=== PATIENT | female | born 1965 | race Caucasian/White ===

== ENCOUNTER 2023-07-11 12:48 | Outpatient (OUT) | payer BC, SELFPAY ==
[2023-07-11 13:23] LABS: Basophils Absolute Auto 0.1 10^3/uL (0.0-0.1); Basophils Percent Auto 0.6 % (0.2-2.0); Eosinophils Absolute Auto 0.3 10^3/uL (0.0-0.7); Eosinophils Percent Auto 2.9 % (0.9-7.0); Hematocrit 45.4 % (36.0-48.0); Hemoglobin 14.1 g/dL (12.0-16.0); Immature Granulocytes Abs Auto 0.02 10^3/uL (0.00-0.03); Immature Granulocytes Pct Auto 0.2 % (0.0-0.5); Lymphocytes Absolute Auto 2.2 10^3/uL (1.2-3.8); Mean Corpuscular HGB Conc 31.1 g/dL (29.9-35.2); Mean Corpuscular Hemoglobin 27.3 pg (26.7-34.0); Mean Platelet Volume 9.7 fL (9.5-13.5); Monocytes Absolute Auto 0.8 10^3/uL (0.3-0.8); Monocytes Percent Auto 8.1 % (1.7-12.0); Neutrophils Absolute Auto 6.3 10^3/uL (1.4-6.5); Neutrophils Percent Auto 65.2 % (43.0-75.0); Platelet Count 261 10^3/uL (150-450); Red Blood Count 5.16 10^6/uL (4.20-5.40); Red Cell Distribution Width 13.6 % (11.0-15.0); White Blood Count 9.6 10^3/uL (4.0-11.0)
[2023-07-11 13:40] LABS: Alanine Aminotransferase 11 U/L (14-59); Albumin Level 3.3 g/dL (3.4-5.0); Alkaline Phosphatase 130 U/L (46-116); Amylase 54 U/L (25-115); Anion Gap 13.5; Aspartate Amino Transferase 15 U/L (15-37); BUN Creatinine Ratio 14.9; Bilirubin Total 0.5 mg/dL (0.2-1.0); Calcium 8.8 mg/dL (8.5-10.1); Carbon Dioxide 25.7 mmol/L (21.0-32.0); Chloride 105 mmol/L (98-107); Estimated GFR (African America 59 (>=60); Estimated GFR (Non-African Ame 49 (>=60); Globulin 3.4 g/dL; Glucose 86 mg/dL (74-106); Potassium 4.2 mmol/L (3.5-5.1); Sodium 140 mmol/L (136-145); Total Protein 6.7 g/dL (6.4-8.2)
== END 2023-07-11 12:49 | disposition home or self-care (01) ==
LOC: LAB 12:53
PROVIDERS: PCP Internal Medicine; Visit Provider Internal Medicine
DX: R10.13 Epigastric pain (principal); I10 Essential (primary) hypertension
CPT/HCPCS: 36415; 80053; 82150; 83690; 85025

== ENCOUNTER 2023-08-18 14:05 | Outpatient (OUT) | payer BC, SELFPAY ==
--- NOTE | 2023-08-18 14:07 | CT_ITS ---
[address] [address] Patient Name: MAN PATTERSON MRN: [id number] date: 1965 Sex: F Assigned Patient Location: CT Current Patient Location: Accession/Order Number: [id number] Exam Date: 08/18/2023 15:25 Report Date: 08/19/2023 07:39 At the request of: VISHNU COVINGTON Procedure: CT abdomen pelvis w con EXAMINATION: CT abdomen pelvis w con HISTORY: Epigastric mass R19.06 ; lump on abdomen COMPARISON: No relevant comparison available. TECHNIQUE: Axial, Coronal, and Sagittal images were obtained without and/or with IV contrast as indicated by examination type. Dose reduction techniques were achieved by using automated exposure control and/or adjustment of mA and/or kV according to patient size and/or use of iterative reconstruction technique. FINDINGS: LUNG BASES: No visible pulmonary or pleural disease. LIVER: No enlargement, atrophy, suspicious density, or significant focal lesion. BILIARY: Cholecystectomy. PANCREAS: No lesion, fluid collection, or abnormal duct dilatation. SPLEEN: No enlargement or focal lesion. ADRENALS: No mass or enlargement. KIDNEYS: No mass, obstruction, or calcification. BOWEL/MESENTERY: No visible mass, obstruction, or bowel wall thickening. AORTA/VASCULAR: No aneurysm or dissection. RETROPERITONEUM: No mass or adenopathy. LYMPH NODES: No adenopathy. URINARY BLADDER: No visible focal wall thickening, lesion, or calculus. PELVIC ORGANS: No visible mass. Pelvic organs appropriate for patient age. ABDOMINAL WALL: 2 adjacent supraumbilical ventral hernias; 8.7 x 8.2 x 3.8 cm containing a loop of transverse colon, and 7.2 x 5.8 x 3.8 cm containing nonstrangulated fat. BONES: Moderate-marked degenerative disc disease L4-5, L5-S1. OTHER: Negative. CT/CT abdomen pelvis w con IMPRESSION: 1. There are 2 adjacent midline supraumbilical ventral hernias. One contains a short segment of transverse colon without obstruction or inflammatory changes. The other contains fat, but the transverse colon is immediately adjacent the opening. Electronically authenticated by: EVANGELIST WILLARD Date: 08/19/2023 07:39
== END 2023-08-18 14:06 | disposition home or self-care (01) ==
LOC: CT 14:05
PROVIDERS: PCP Internal Medicine; Visit Provider Surgery
DX: R19.06 Epigastric swelling, mass or lump (principal); K43.9 Ventral hernia without obstruction or gangrene
CPT/HCPCS: 74177; Q9967

== ENCOUNTER 2023-08-25 09:52 | Outpatient (OUT) | payer BC, SELFPAY ==
--- NOTE | 2023-08-25 10:00 | CA_ITS ---
Patient Name: MAN PATTERSON MR#: [id number] : 1965 Exam Date: 08/25/2023 Ordering Doctor: GLADIS VILLASEÑOR CNP ECHOCARDIOGRAM REPORT PROCEDURE: CA ECHO DOPPLER COMPLETE INDICATIONS: Hypertension COMPARISON: None. DESCRIPTION: COMPLETE ECHOCARDIOGRAM Real-time transthoracic echocardiography with 2D, M-mode, spectral and color flow Doppler performed. QUALITY: Technical quality was good. 66 , 250#, BSA 2.20 m2, BP 142/84 LEFT VENTRICLE: Normal chamber size. Borderline left ventricular hypertrophy. Normal systolic function. LV EF: Normal left ventricular ejection fraction, (55%). DIASTOLIC: Normal diastolic function. ATRIAL SEPTUM: Visually appears intact. LEFT ATRIUM: Normal chamber size. RIGHT ATRIUM: Normal chamber size. RIGHT VENTRICLE: Normal chamber size. Normal right ventricular systolic function. TRICUSPID VALVE: Normal mobility and thickness. No stenosis with no regurgitation. MITRAL VALVE: Normal mobility and thickness. No evidence of mitral valve stenosis. There is no mitral annular calcification. No mitral regurgitation. AORTIC VALVE: Normal trileaflet appearance. No visible sclerosis. Normal leaflet mobility. No evidence of aortic valve stenosis. No aortic regurgitation. AORTIC ROOT: Normal diameter and appearance. Ascending aorta is normal in size. PULMONIC VALVE: Not well visualized. No stenosis. No regurgitation. PERICARDIUM: No evidence of pericardial effusion. IVC: Collapses with inspirations. IVC is normal in size. PLEURA: CONCLUSION: 1. Normal ventricular systolic function. LVEF is 55%. 2. Normal diastolic function. 3. No significant valvular dysfunction. 4. No pericardial effusion. Adult Echocardiography Procedure Report Left Ventricle LVEDD (3.7 - 5.6 cm): 4.65 cm LVESD (2.2 - 4.0 cm): 3.29 cm LVIVS thickness (0.6 - 1.2 cm): 0.99 cm LVPW thickness (0.5 - 1.0 cm): 0.96 cm e': 0.09 m/s E - e': 6.56 LVOT Max Gradient: 5.15 mm[Hg] LVOT Area (cm2): 1.13 m/s Peak Velocity (LVOT): 1.13 m/s Mean Velocity (LVOT): 0.77 m/s LVOT Diameter 1.99 cm Left Atrium LA Volume Index (2D A2C): 24.09 ml/m2 Left Atrium Systolic Dimension: 4.50 cm Mitral Valve MV E to A Ratio: 0.81 Mitral Valve A-Wave Peak Velocity: 0.72 m/s Mitral Valve E-Wave Peak Velocity: 0.59 m/s Right Ventricle Aorta AO Root Diam: 3.34 cm Ascending Ao Diam: 3.16 cm Aortic Valve AoV Area (Peak Fareed): 2.55 cm2, 2.55 cm2 AoV Area (VTI): 2.89 cm2, 2.89 cm2 Peak Velocity(Antegrade Flow): 1.38 m/s Peak Gradient(Antegrade Flow): 7.58 mm[Hg] Mean Velocity(Antegrade Flow): 0.90 m/s Mean Gradient(Antegrade Flow): 3.81 mm[Hg] Velocity Time Integral: 30.27 cm Tricuspid Valve Pulmonic Valve Peak Gradient: 2.89 mm[Hg], 3.26 mm[Hg] Right Atrium Dictated by: Skyler Rice M.D. on 08/25/2023 at 17:38 Approved by: Skyler Rice M.D. on 08/25/2023 at 17:40
--- OUTSIDE RECORDS SUMMARY | 2023-08-25 10:02 | XMS_ITS | CCD ---
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 Role Phone PHYSICIAN, DEFAULT Unavailable Unavailable PHYSICIAN, DEFAULT Unavailable Unavailable Rosemary Manriquez Unavailable Harjinder Denny Unavailable QUENTIN, DR GREENWOOD Admitting Unavailable QUENTIN, DR GREENWOOD Attending Unavailable QUENTIN, DR GREENWOOD Consulting Unavailable QUENTIN, DR GREENWOOD Primary Care Unavailable QUENTIN, DR GREENWOOD Primary Care Unavailable QUENTIN, DR GREENWOOD Admitting Unavailable QUENTIN, DR GREENWOOD Attending Unavailable QUENTIN, DR GREENWOOD Consulting Unavailable GLADIS VILLASEÑOR Attending Unavailable HAILEE ALEX Attending Unavailable VISHNU COVINGTON Attending Unavailable Allergies Allergy Classification Reported Allergen(s) Allergy Type Date of Onset Reaction(s) Facility (1 source) Desonide Drug Allergy 7 [facility] Repository (1 source) patient allergy list reviewed by nurse or physicia Propensity to adverse reactions 9 Comment:Done [employer] Other (1 source) Allergies Reconciled Propensity to adverse reactions Unknown [employer] Other Medications Current Medications Medication Drug Class(es) Dates Sig (Normalized) Sig (Original) [id number] 200 actuat albuterol 0.09 mg/actuat metered dose inhaler (3 sources) beta2-Adrenergic Agonist Start: 03-13-2022 take 2 puff(s) by inhalation every four hours as needed Albuterol Sulfate HFA 108 (90 Base) MCG/ACT 2 puffs as needed Inhalation every 4 hrs Mar, Active Start: 03-13-2022 take 2 puff(s) by in halation every four hours as needed Albuterol Sulfate HFA 108 (90 Base) MCG/ACT 2 puffs as needed Inhalation every 4 hrs Mar, Active amoxicillin 875 mg oral tablet (3 sources) Penicillin-class Antibacterial Start: 03-13-2022 take 1 tablet by mouth every twelve hours Amoxicillin 875 MG 1 tablet Orally every 12 hrs for 7 days Mar, Active aspirin 81 mg delayed release oral tablet (7 sources) Platelet Aggregation Inhibitor, Nonsteroidal Anti-inflammatory Drug Start: 07-11-2023 take 81 mg by mouth once daily Aspirin Active 81 MG PO Daily July 11, 2023 12:00am take 1 tablet by mouth once yang y Aspirin 81 81 MG 1 tablet Orally Once a day Active 24 hr buPROPion hydrochloride 150 mg extended release oral tablet (10 sources) Aminoketone Start: 07-11-2023 take 150 mg by mouth once daily in the morning Bupropion Hcl Active 150 MG PO Every morning July 11, 2023 12:00am take 1 tablet by la nena th every twenty-four hours Wellbutrin XL 150 MG 1 tablet in the morning Orally Once a day for 90 days Active take 1 tablet by la nena th every twenty-four hours buPROPion HCl ER (SR) 150 MG 1 tablet in the morning Orally Once a day Active clonazePAM 0.5 mg oral tablet (3 sources) Benzodiazepine Start: 08-03-2022 clonazePAM 0.5 MG 1/2 - 1 Orally q HS for 30 days Jul, Active dexamethasone 1 mg/ml / tobramycin 3 mg/ml ophthalmic suspension (3 sources) Aminoglycoside Antibacterial, Corticosteroid Start: 03-13-2022 take 1 drop(s) into the eye(s) three times daily TobraDex 0.3-0.1 % 1 drop into affected eye Ophthalmic Three times a day for 5 days Mar, Active escitalopram 20 mg oral tablet (7 sources) Serotonin Reuptake Inhibitor Start: 07-11-2023 take 20 mg by mouth once daily Escitalopram Oxalate Active 20 MG PO Daily July 11, 2023 12:00am take 1 tablet by la nena th every twenty-four hours Escitalopram Oxalate 20 MG 1 tablet Oral ly Once a day for 90 days Active lisinopril 40 mg oral tablet (7 sources) Angiotensin Converting Enzyme Inhibitor Start: 07-11-2023 take 40 mg by mouth once daily Lisinopril Active 40 MG PO Daily July 11, 2023 12:00am take 1 tablet by la nena th every twenty-four hours Lisinopril 30 MG 1 tablet Orally Once a day Active take 1 tablet by la nena th every twenty-four hours Lisinopril 20 MG 1 tablet Orally Once a day Active methylPREDNISolone 4 mg oral tablet (3 sources) Corticosteroid Start: 03-13-2022 methylPREDNISolone 4 MG as directed Orally Once a day for 6 days Mar, Active metoprolol tartrate 37.5 mg oral tablet (7 sources) beta-Adrenergic Kim Start: 07-11-2023 take 37.5 mg by mouth once daily Metoprolol Tartrate Active 37.5 MG PO Daily July 11, 2023 12:00am Toprol XL 25 MG 1 1/2 tablet Orally Once a day Active Problems Active Problems Problem Classification Problem Date Documented Da te Episodic/Chronic Abdominal pain (2 sources) Epigastric pain; Translations: [Epigastric pain] 07-11-2023 Episodic Acute bronchitis (1 source) Acute bronchitis; Translations: [Acute bronchitis due to other specified organisms] Episodic Anxiety disorders (1 source) Posttraumatic stress disorder; Translations: [Post-traumatic stress disorder, unspecified] Chronic Asthma (1 source) Acute exacerbation of moderate persistent asthma; Translations: [Moderate persistent asthma with (acute) exacerbation] Chronic Cardiac dysrhythmias (10 sources) Ventricular bigeminy; Translations: [Other specified cardiac arrhythmias] Onset: 9 Chronic Chronic obstructive pulmonary disease and bronchiectasis (1 source) Bronchitis, not specified as acute or chronic Episodic Disorders of lipid metabolism (2 sources) Mixed hyperlipidemia; Translations: [Mixed hyperlipidemia] Onset: 3 Chronic Essential hypertension (9 sources) Essential hypertension; Translations: [Essential (primary) hypertension] Onset: 3 Chronic Headache; including migraine (2 sources) Migraine with aura; Translations: [Migraine with aura, without mention of intractable migraine without mention of status migrainosus] Onset: 9 Chronic Inflammation; infection of eye (except that caused by tuberculosis or sexually transmitteddisease) (1 source) Unspecified acute conjunctivitis, bilateral Episodic Mood disorders (7 sources) Recurrent major depressive episodes, mild ; Translations: [Major depressive disorder, recurrent, mild] Chronic Other gastrointestinal disorders (1 source) H/O: gastrointestinal disease; Translations: [Personal history of other diseases of the digestive system] Episodic Other lower respiratory disease (1 source) Dyspnea; Translations: [Other forms of dyspnea] Episodic Other nutritional; endocrine; and metabolic disorders (1 source) Simple obesity ; Translations: [Other obesity due to excess calories] Onset: 9 Chronic Other nutritional; endocrine; and metabolic disorders (1 source) Obese class I; Translations: [Body mass index 34.0-34.9, adult] Onset: 9 Chronic Other nutritional; endocrine; and metabolic disorders (1 source) Body mass index 30+ - obesity; Translations: [Body mass index 36.0-36.9, adult] Onset: 9 Chronic Other screening for suspected conditions (not mental disorders or infectious disease) (1 source) Encounter for screening mammogram for malignant neoplasm of breast Episodic Other upper respiratory infections (1 source) Acute pharyngitis, unspecified Episodic Otitis media and related conditions (1 source) Otitis media, unspecified, bilateral Episodic Residual codes; unclassified (4 sources) Obstructive sleep apnea syndrome; Translations: [Obstructive sleep apnea (adult) (pediatric)] Chronic Residual codes; unclassified (1 source) Obstructive sleep apnea (adult) (pediatric) Chronic Residual codes; unclassified (1 source) Pain, unspecified Episodic Residual codes; unclassified (1 source) Acquired absence of other specified parts of digestive tract; Translations: [Other acquired absence of organ] 07-11-2023 Episodic Varicose veins of lower extremity (1 source) Varicose veins of bilateral lower limbs; Translations: [Asymptomatic varicose veins of bilateral lower extremities] Episodic Viral infection (1 source) Disease caused by 2019-nCoV; Translations: [COVID-19] Past or Other Problems Problem Classification Problem Date Documented Da te Episodic/Chronic Cardiac dysrhythmias (2 sources) Palpitations; Translations: [Palpitations] Onset: 09-08-2022 Episodic Other and unspecified benign neoplasm (1 source) Eruptive melanocytic nevi; Translations: [Melanocytic nevi, unspecified] Onset: 05-08-2018 Episodic Other nutritional; endocrine; and metabolic disorders (1 source) Obesity; Translations: [Obesity, unspecified] Resolved: 08-04-2020 Chronic Other nutritional; endocrine; and metabolic disorders (1 source) Morbid obesity; Translations: [Morbid (severe) obesity due to excess calories] Resolved: 04-06-2022 Chronic Residual codes; unclassified (1 source) Other acquired absence of organ; Translations: [Other acquired absence of organ] Onset: 10-25-2018 Resolved: 10-28-2019 Episodic Syncope (3 sources) Syncope and collapse; Translations: [Syncope and collapse] Onset: 05-08-2018 Episodic Results Test Name Value Interpretation Reference Range Facility Office Visiton 08-02-2023 Follow-up visit [id number] Josephine Salas 1965 F Date Provider Department Center 08/02/2023 166-GLADIS VILLASEÑOR DAVID [facility] No family history on file Level of Service:23574 [place] OFFICE/OUTPATIENT ESTABLISHED MOD MDM 30 MIN Reason for Visit and Comments: Hypertension [772743] Normal [facility] Office Visiton 09-29-2022 Follow-up visit [id number] Josephine Salas 1965 F Date Provider Department Center 09/29/2022 120-HAILEE ALEX SHEFALI [facility] No family history on file Level of Service:25597 [place] OFFICE/OUTPATIENT ESTABLISHED LOW MDM 20-29 MIN Reason for Visit and Comments: Follow-up [[id number]] - Yearly follow up [facility] CBC AUTO DIFFon 07-28-2022 BASO # 0.1 103/ul Normal 0.0-0.1 [facility] Comment on above: Performed By: #### C BC #### [facility] [address] [place] [address] Dr. Jakub Chen Basophils/100 WBC (Bld) 0.6 % Normal 0.2-2.0 [facility] Comment on above: Performed By: #### C BC #### [facility] [address] [place] [address] Dr. Jakub Chen EO # 0.3 103/ul Normal 0.0-0.7 [facility] Comment on above: Performed By: #### C BC #### [facility] [address] [place] [address] Dr. Jakub Chen Eosinophils/100 WBC (Bld) 3.8 % Normal 0.9-7.0 [facility] Comment on above: Performed By: #### C BC #### [facility] [address] [place] [address] Dr. Jakub Chen Erythrocyte distribution width (RBC) [Ratio] 13.5 % Normal 11.0-15.0 [facility] Comment on above: Performed By: #### C BC #### [facility] [address] [place] [address] Dr. Jakub Chen Hematocrit (Bld) [Volume fraction] 45.6 % Normal 36.0-48.0 [facility] Comment on above: Performed By: #### C BC #### [facility] [address] [place] [address] Dr. Jakub Chen Hemoglobin (Bld) [Mass/Vol] 14.3 g/dL Normal 12.0-16.0 [facility] Comment on above: Performed By: #### C BC #### [facility] [address] [place] [address] Dr. Jakub Chen IG # 0.02 10e3/ul Normal 0.00-0.03 [facility] Comment on above: Performed By: #### C BC #### [facility] [address] [place] [address] Dr. Jakub Chen IG % 0.3 % Normal 0.0-0.5 [facility] Comment on above: Performed By: #### C BC #### [facility] [address] [place] [address] Dr. Jakub Chen LYMPH # 1.7 103/ul Normal 1.2-3.8 [facility] Comment on above: Performed By: #### C BC #### [facility] [address] [place] [address] Dr. Jakub Chen Lymphocytes/100 WBC (Bld) 22.1 % Normal 20.5-60.0 [facility] Comment on above: Performed By: #### C BC #### [facility] [address] [place] [address] Dr. Jakub Chen MANUAL DIFF REQ NO Normal [facility] Comment on above: Performed By: #### C BC #### [facility] [address] [place] [address] Dr. Jakub Chen MCH (RBC) [Entitic mass] 27.8 pg Normal 26.7-34.0 [facility] Comment on above: Performed By: #### C BC #### [facility] [address] [address] [address] Jakub Chen MCHC (RBC) [Mass/Vol] 31.4 g/dL Normal 29.9-35.2 [facility] Comment on above: Performed By: #### C BC #### [facility] [address] [address] [address] Jakub Chen MCV (RBC) [Entitic vol] 88.5 fL Normal 81.0-99.0 [facility] Comment on above: Performed By: #### C BC #### [facility] [address] [place] [address] Dr. Jakub Chen MONO # 0.6 103/ul Normal 0.3-0.8 [facility] Comment on above: Performed By: #### C BC #### [facility] [address] [place] [address] Dr. Jakub Chen Monocytes/100 WBC (Bld) 7.9 % Normal 1.7-12.0 [facility] Comment on above: Performed By: #### C BC #### [facility] [address] [place] [address] Dr. Jakub Chen NEUT # 5.1 103/ul Normal 1.4-6.5 [facility] Comment on above: Performed By: #### C BC #### [facility] [address] [place] [address] Dr. Jakub Chen Neutrophils/100 WBC (Bld) 65.3 % Normal 43.0-75.0 [facility] Comment on above: Performed By: #### C BC #### [facility] [address] [address] [address] Jakub Chen Platelet mean volume (Bld) [Entitic vol] 9.1 fL Critically low 9.5-13.5 [facility] Comment on above: Performed By: #### C BC #### [facility] [address] [address] [address] Jakub Chen PLT 277 103/ul Normal 150-450 [facility] Comment on above: Performed By: #### C BC #### [facility] [address] [place] [address] Dr. Jakub Chen RBC 5.15 106/ul Normal 4.20-5.40 [facility] Comment on above: Performed By: #### C BC #### [facility] [address] [address] [address] Jakub Chen WBC 7.7 103/ul Normal 4.0-11.0 [facility] Comment on above: Performed By: #### C BC #### [facility] [address] [place] [address] Dr. Jakub Chen GLYCOHEMOGLOBIN A1Con 2022 ADA RECOMMENDATION SEE BELOW Normal [facility] Comment on above: Result Comment: ADA RECOMMENDED LIMIT 4.0 - 6.0 ADA THERAPEUTIC TARGET < 7.0 ACTION SUGGESTED > 7.0 Performed By: #### A 1C #### [facility] [address] [place] [address] Dr. Jakub Chen Glucose [Mass/Vol] 108 mg/dL Normal [facility] Comment on above: Performed By: #### A 1C #### [facility] [address] [place] [address] Dr. Jakub Chen HbA1c (Bld) [Mass fraction] 5.4 % Normal 4.5-6.2 [facility] Comment on above: Performed By: #### A 1C #### [facility] [address] [place] [address] Dr. Jakub Chen LIPID PROFILEon 07-28-2022 CHOL-HDL RATIO NORM SEE BELOW Normal [facility] Comment on above: Result Comment: 3.3 - 4.4 LOW RISK 4.4 - 7.1 AVERAGE RISK 7.1 - 11.0 MODERATE RISK >11.0 HIGH RISK Performed By: #### T SH, CMP, LIPID #### [facility] [address] [place] [address] Dr. Jakub Chen Cholesterol [Mass/Vol] 207 mg/dL Critically high <=200 [facility] Comment on above: Performed By: #### T SH, CMP, LIPID #### [facility] [address] [address] [address] Jakub Chen Cholesterol in HDL [Mass/Vol] 57 mg/dL Normal 40-60 [facility] Comment on above: Performed By: #### T SH, CMP, LIPID #### [facility] [address] [address] [address] Jakub Chen Cholesterol in LDL [Mass/Vol] 129.2 mg/dL Normal [facility] Comment on above: Performed By: #### T SH, CMP, LIPID #### [facility] [address] [address] [address] Jakub Chen Cholesterol.total/Ch olesterol in HDL [Mass ratio] 3.6 {ratio} Normal [facility] Comment on above: Performed By: #### T SH, CMP, LIPID #### [facility] [address] [address] [address] Jakub Chen HDL NORMAL > or = 60 mg/dl - LOW CARDIOVASCULAR RISK <40 mg/dl - HIGH CARDIOVASCULAR RISK Normal [facility] Comment on above: Performed By: #### T SH, CMP, LIPID #### [facility] [address] [address] [address] Jakub Chen LDL CALC NORMAL SEE BELOW Normal [facility] Comment on above: Result Comment: <100 mg/dl OPTIMAL 100 - 129 mg/dl NEAR OR ABOVE OPTIMAL 130 - 159 mg/dl BORDERLINE HIGH 160 - 189 mg/dl HIGH >190 mg/dl VERY HIGH Performed By: #### T SH, CMP, LIPID #### [facility] [address] [address] [address] Jakub Chen Triglyceride [Mass/Vol] 104 mg/dL Normal <=150 [facility] Comment on above: Performed By: #### T SH, CMP, LIPID #### [facility] [address] [address] [address] Jakub Chen VLDL CALC 20.8 mg/dL Normal [facility] Comment on above: Performed By: #### T SH, CMP, LIPID #### [facility] [address] [address] [address] Jakub Chen MICROALBUMIN, RAND URon 04-1 9-2023 mALB <1.3 Normal <=30.0 [facility] Comment on above: Performed By: #### M ALBR #### [facility] [address] [address] [address] Jakub Chen PROF 14(COMP METB)on 023 Albumin [Mass/Vol] 3.5 g/dL Normal 3.4-5.0 [facility] Comment on above: Performed By: #### T SH, CMP, LIPID #### [facility] [address] [address] [address] Jakub hCen Albumin/Globulin [Mass ratio] 1.0 {ratio} Normal [facility] Comment on above: Performed By: #### T SH, CMP, LIPID #### [facility] [address] [address] [address] Jakub Chen ALP [Catalytic activity/Vol] 126 U/L Critically high 46-116 [facility] Comment on above: Performed By: #### T SH, CMP, LIPID #### [facility] [address] [place] [address] Dr. Jakub Chen ALT [Catalytic activity/Vol] 16 U/L Normal 14-59 [facility] Comment on above: Performed By: #### T SH, CMP, LIPID #### [facility] [address] [address] [address] Jakub Chen Anion gap [Moles/Vol] 11.7 mmol/L Normal [facility] Comment on above: Performed By: #### T SH, CMP, LIPID #### [facility] [address] [address] [address] Jakub Chen AST [Catalytic activity/Vol] 14 U/L Critically low 15-37 [facility] Comment on above: Performed By: #### T SH, CMP, LIPID #### [facility] [address] [place] [address] Dr. Jakub Chen Bilirubin [Mass/Vol] 0.3 mg/dL Normal 0.2-1.0 [facility] Comment on above: Performed By: #### T SH, CMP, LIPID #### [facility] [address] [address] [address] Jakub Chen Calcium [Mass/Vol] 8.9 mg/dL Normal 8.5-10.1 [facility] Comment on above: Performed By: #### T SH, CMP, LIPID #### [facility] [address] [address] [address] Jakub Chen Chloride [Moles/Vol] 108 mmol/L Critically high 98-107 [facility] Comment on above: Performed By: #### T SH, CMP, LIPID #### [facility] [address] [address] [address] Jakub Chen CO2 [Moles/Vol] 28.2 mmol/L Normal 21.0-32.0 [facility] Comment on above: Performed By: #### T SH, CMP, LIPID #### [facility] [address] [address] [address] Jakub Chen Creatinine [Mass/Vol] 1.01 mg/dL Normal 0.55-1.02 [facility] Comment on above: Performed By: #### T SH, CMP, LIPID #### [facility] [address] [address] [address] Jakub Chen EGFR-AF IVORIAN >60 Normal >=60 [facility] Comment on above: Performed By: #### T SH, CMP, LIPID #### [facility] [address] [address] [address] Jakub Chen EGFR-NON AF IVORIAN 56 mL/min/1.73m2 Critically low >=60 [facility] Comment on above: Performed By: #### T SH, CMP, LIPID #### [facility] [address] [address] [address] Jakub Chen Globulin (S) [Mass/Vol] 3.5 g/dL Normal [facility] Comment on above: Performed By: #### T SH, CMP, LIPID #### [facility] [address] [address] [address] Jakub Chen Glucose [Mass/Vol] 95 mg/dL Normal 74-106 [facility] Comment on above: Performed By: #### T SH, CMP, LIPID #### [facility] [address] [place] [address] Dr. Jakub Chen Potassium [Moles/Vol] 4.9 mmol/L Normal 3.5-5.1 [facility] Comment on above: Performed By: #### T SH, CMP, LIPID #### [facility] [address] [place] [address] Dr. Jakub Chen Protein [Mass/Vol] 7.0 g/dL Normal 6.4-8.2 [facility] Comment on above: Performed By: #### T SH, CMP, LIPID #### [facility] [address] [place] [address] Dr. Jakub Chen Sodium [Moles/Vol] 143 mmol/L Normal 136-145 [facility] Comment on above: Performed By: #### T SH, CMP, LIPID #### [facility] [address] [place] [address] Dr. Jakub Chen Urea nitrogen [Mass/Vol] 13.0 mg/dL Normal 7.0-18.0 [facility] Comment on above: Performed By: #### T SH, CMP, LIPID #### [facility] [address] [place] [address] Dr. Jakub Chen Urea nitrogen/Creatinine [Mass ratio] 12.9 mg/mg Normal [facility] Comment on above: Performed By: #### T SH, CMP, LIPID #### [facility] [address] [place] [address] Dr. Jakub Chen TSHon 07-28-2022 TSH 1.406 uIU/mL Normal 0.358-3.740 [facility] Comment on above: Performed By: #### T SH, CMP, LIPID #### [facility] [address] [place] [address] Dr. Jakub Chen COVID/FLU RT-PCRon 2 SARS-CoV-2 (COVID-19) RNA RUSS+probe Ql (Unsp spec) Negative [employer] Other COVID/FLU RT-PCR Negative [employer] Other [facility] 03-13-2022 S. pyogenes Org specific cx Ql (Throat) Negative [facility] [employer] Other Quick Strep [facility] [employer] Other Vital Signs Date Time Vital Sign Value Performing Clinician Facility 07-11-2023 11:47-0400 Body height 167.64 cm [facility] 07-11-2023 11:47-0400 Body mass index (BMI) [Ratio] 40.2 kg/m2 [facility] 07-11-2023 11:47-0400 Body weight 113.05 kg [facility] 07-11-2023 11:47-0400 Diastolic blood pressure 111 mm[Hg] [facility] 07-11-2023 11:47-0400 Heart rate 75 /min [facility] 07-11-2023 11:47-0400 Respiratory rate 12 /min [facility] 07-11-2023 11:47-0400 Systolic blood pressure 162 mm[Hg] [facility] 08-03-2022 11:30-0400 Body height 167.64 cm Harjinder Ball Other [facility] [employer] Other 08-03-2022 11:30-0400 Body mass index (BMI) [Ratio] 38.22 kg/m2 Harjinder Ball Other [facility] [employer] Other 08-03-2022 11:30-0400 Body weight 107.41 kg Harjinder Ball Other [facility] [employer] Other 08-03-2022 11:30-0400 Diastolic blood pressure 78 mm[Hg] Harjinder Ball Other [facility] [employer] Other 08-03-2022 11:30-0400 Respiratory rate 12 /min Harjinder Ball Other [facility] [employer] Other 08-03-2022 11:30-0400 Systolic blood pressure 122 mm[Hg] Harjinder Ball Other [employer] Other 03-13-2022 12:15-0500 Body height 167.64 cm Rosemary Manriquez Other [employer] Other 03-13-2022 12:15-0500 Body mass index (BMI) [Ratio] 36.63 kg/m2 Rosemary Manriquez Other [employer] Other 03-13-2022 12:15-0500 Body temperature 99.3 [degF] Rosemary Manriquez Other [facility] Other 03-13-2022 12:15-0500 Body weight 102.97 kg Rosemary Manriquez Other [facility] Other 03-13-2022 12:15-0500 Diastolic blood pressure 86 mm[Hg] Rosemary Manriquez Other [facility] Other 03-13-2022 12:15-0500 Respiratory rate 20 /min Rosemary Manriquez Other [facility] Other 03-13-2022 12:15-0500 SaO2% (BldA) [Mass fraction] 97 % Rosemary Manriquez Other [facility] Other 03-13-2022 12:15-0500 Systolic blood pressure 132 mm[Hg] Rosemary Manriquez Other [facility] Other Encounters Encounter Date Encounter Type Care Provider Facility Start: 08-15-2023 End: 08-15-2023 ambulatory VISHNU COVINGTON Not Available Start: 08-02-2023 End: 08-03-2023 ambulatory [facility] Start: 07-11-2023 End: 07-11-[address] [facility] Work Phone: Start: 07-11-2023 End: 07-11-2023 Patient encounter procedure [facility] Work Phone: Start: 12-28-2022 End: 12-28-2022 ambulatory Harjinder Denny Other [facility] Other Start: 12-28-2022 Telephone encounter Harjinder GOSS [facility] Start: 09-29-2022 End: 09-29-2022 ambulatory [facility] Start: 09-13-2022 End: 09-13-2022 ambulatory Harjinder Denny Other [facility] Other Start: 09-13-2022 Telephone encounter [facility] Start: 08-25-[address] HARJINDER DENNY Facili ty:[facility] Start: 08-03-2022 End: 08-03-2022 ambulatory Harjinder Denny Other [facility] Other Start: 08-03-2022 Encounter for genera l adult medical examination without abnormal findings Harjinder Denny [facility] Start: 08-03-2022 Periodic preventive med est patient 40-64yrs Harjinder Denny [facility] Start: 08-02-2022 Encounter for genera l adult medical examination without abnormal findings DR HARJINDER DENNY [facility] Start: 07-28-2022 End: 07-29-[address] HARJINDER DENNY Facility:[facility] Start: 07-28-2022 End: 07-29-2022 Encounter for general adult medical examination without abnormal findings DR HARJINDER DENNY Facility:[facility] Start: 07-16-2022 End: 07-16-2022 ambulatory Harjinder Denny Other [facility] Other Start: 07-16-2022 Encounter for genera l adult medical examination without abnormal findings Harjinder Denny [facility] Start: 07-16-2022 Telephone encounter Harjinder GOSS [facility] Start: 06-21-2022 End: 06-21-2022 ambulatory Harjinder Denny Other [facility] Other Start: 06-21-2022 Telephone encounter [facility] Start: 04-06-2022 Gynecological examination abnormal Harjinder Denny Other [facility] Other Start: 04-06-2022 Gynecological examination normal Harjinder Denny Other [facility] Other Start: 03-13-2022 End: 03-13-2022 ambulatory Rosemary Declan Other [facility] Other Start: 03-13-2022 Office outpatient ne w 20 minutes Rosemaryjefe Manriquez [facility] Start: 02-04-2020 Adult health examination Reinaldo Denny Other [facility] Other Start: 02-10-2018 End: 02-11-2018 Patient encounter procedure DEFAULT PHYSICIAN Facility:[facility] Procedures Date Procedure Procedure Detail Performing Clinician Depression screening Polina Denny Other Screening for malign ant neoplasm of breast Harjinder Denny Other Screening for malign ant neoplasm of skin Harjinder Denny Other Plan of Treatment Date Care Activity Detail Author Comprehensive metabo lic 2000 panel - Serum or Plasma [facility] Immunizations Immunization Date Immunization Notes Care Provider Fa jose 01-30-2021 COVID-19 Vaccine Mod ijeoma - Documentation Purposes Only Harjinder Denny Other [facility] 05-15-2020 COVID-19 Vaccine Mod ijeoma - Documentation Purposes Only Harjinder Denny Other [facility] 04-17-2020 COVID-19 Vaccine Mod ijeoma - Documentation Purposes Only Harjinder Denny Other [facility] Payers Date Payer Category [id number] 1965 Unknown [id number] 1965 Unknown [id number] 1965 Unknown [id number] 1965 Unknown [id number] Unknown Unknown [id number] [id number] Unknown MMO-DO NOT USE [id number] Social History Date Type Detail Facility Unknown if ever smoked [facility] Other Sex Assigned At Sex Assigned At Bir [facility] Other Start: 1965 Sex Assigned At Female F [facility] Clinical Notes 03-13-2022 to 08-02-2023 Note Date & Type Note Facility 08-02-2023 Note Cardiovascular Medic [facility] SUBJECTIVE Chief Complaint Patient presents with Hypertension Josephine Salas is a 58 y.o. female here for follow-up. 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 PCP started her on amlodipine recently. She takes all her medications in the mornings. Denies chest pain. C/o SOB w/wo exertion. Gets lightheaded occasionally. She has also been feeling palpitations recently. She c/o labile BP. BP in the morning could read high or normal. BP in the evening could read high or normal. Highs: 160-180/100s Normal: 120s/80s She will have headaches or feel fuzzy if her BP is too high. Hx syncope - no recent events. Notes she does not really sweat much. PCP started her on amlodipine for the past 2 weeks for HTN. Patient Active Problem List Diagnosis Syncope and collapse Mixed hyperlipidemia Benign essential HTN Intermittent palpitations Hypertensive disorder PVC (premature ventricular contraction) Past Medical History: Diagnosis Date Benign essential HTN 09/08/2022 Intermittent palpitations 09/08/2022 Mixed hyperlipidemia 09/08/2022 PVC (premature ventricular contraction) 09/29/2022 Syncope and collapse 09/08/2022 No family history on file. Social History Tobacco Use Smoking status: Never Smokeless tobacco: Never No Known Allergies ROS Cardiovascular: Positive for dyspnea on exertion, irregular heartbeat and palpitations. Respiratory: Positive for shortness of breath. Neurological: Positive for headaches and light-headedness (occasional). All other systems reviewed and are negative. OBJECTIVE Visit Vitals BP 142/84 (BP Location: Left arm, Patient Position: Sitting) Pulse 54 Ht 1.676 m (5' 6 ) Wt 112 kg (248 lb) SpO2 97% BMI 40.03 kg/m??? Smoking Status Never BSA 2.28 m??? Medications: Current Outpatient Medications: amLODIPine (Norvasc) 5 mg tablet, TAKE 1 TABLET BY MOUTH ONCE EVERYDAY, Disp: , Rfl: aspirin 81 mg EC tablet, Take 81 mg by mouth in the morning., Disp: , Rfl: buPROPion XL (Wellbutrin XL) 150 mg 24 hr tablet, Take 150 mg by mouth in the morning., Disp: , Rfl: escitalopram (Lexapro) 20 mg tablet, Take 20 mg by mouth in the morning., Disp: , Rfl: metoprolol succinate XL (Toprol-XL) 25 mg 24 hr tablet, Take 1 & 1/2 tablets by mouth by mouth every day, Disp: 135 tablet, Rfl: 3 lisinopril 20 mg tablet, Take 1 tablet (20 mg) by mouth in the morning and at bedtime., Disp: 180 tablet, Rfl: 3 Physical Exam Vitals reviewed. Constitutional: Appearance: Normal appearance. She is obese. HENT: Head: Normocephalic and atraumatic. Right Ear: External ear normal. Left Ear: External ear normal. Eyes: Extraocular Movements: Extraocular movements intact. Conjunctiva/sclera: Conjunctivae normal. Pupils: Pupils are equal, round, and reactive to light. Neck: Vascular: No carotid bruit. Cardiovascular: Rate and Rhythm: Normal rate and regular rhythm. Pulses: Normal pulses. Heart sounds: Normal heart sounds. Pulmonary: Effort: Pulmonary effort is normal. Breath sounds: Normal breath sounds. Abdominal: General: Bowel sounds are normal. Palpations: Abdomen is soft. Musculoskeletal: Cervical back: Neck supple. Right lower leg: No edema. Left lower leg: No edema. Skin: General: Skin is warm and dry. Neurological: General: No focal deficit present. Mental Status: She is alert and oriented to person, place, and time. Psychiatric: Mood and Affect: Mood normal. Behavior: Behavior normal. Thought Content: Thought content normal. Judgment: Judgment normal. Labs: 07/11/23 CBC - unremarkable BMP - Cr 1.14, BUN 17, eGFR 59, K 4.2, Na 140, AST 15, ALT 11 07/28/2022 CBC - unremarkable Cr 1.01, BN 13, K 4.9, Na 143, eGFR 56, ALT 16, AST 14 Chol 207, HDL 57, trig 104, LDL 129 TSH 1.4 Blood testing 12/17/2020: Hemoglobin 14.1, platelets 275, potassium 4.6, BUN 12, creatinine 0.99, LFTs normal, cholesterol 192, HDL 54, triglycerides 83, LDL 121. TSH normal. 12/05/2019: CBC unremarkable, BMP: Cr. 1.08, BUN 11, GFR 53; total chol 162, HDL 62, trig 93, LDL 111 Blood testing 02/02/2018: normal CBC, BMP, thyroid. LDL 135. Chol 208. mildly elevated Alk Phos Testing/Procedures: Echocardiogram 02/15/2018: Normal ventricular function. Mild mitral regurgitation. Normal right sided pressures. Stress test 02/16/2018: Normal. EF 74%. ASSESSMENT/PLAN: Diagnoses and all orders for this visit: Essential hypertension - Transthoracic echo (TTE) complete; Future - lisinopril 20 mg tablet; Take 1 tablet (20 mg) by mouth in the morning and at bedtime. Labile blood pressure Palpitations - ECG 12 lead PVC (premature ventricular contraction) - Transthoracic echo (TTE) complete; Future PAC (premature atrial contraction) Bradycardia Benign essential HTN She has had some labile BP She is sym (more content not included)... [facility] 08-02-2023 Note Patient here c/o hyp ertension. PCP started her on amlodipine recently. She takes all her medications in the mornings. Denies chest pain. C/o SOB w/wo exertion. Gets lightheaded occasionally. She has also been feeling palpitations recently. Review of Systems Cardiovascular: Positive for dyspnea on exertion, irregular heartbeat and palpitations. Respiratory: Positive for shortness of breath. Neurological: Positive for headaches and light-headedness (occasional). All other systems reviewed and are negative. [facility] 09-29-2022 Note Continue [facility] 09-29-2022 Note Continue [facility] 09-29-2022 Note [facility] CARDIOLOGY PROGR ESS NOTE HPI: Josephine Salas is a 57 y.o. female here for Follow-up (Yearly follow up ) HPI Pt presents to clinic for routine visit for syncope, PVCs with palpitations, HTN Denied chest pain, shortness of breath, orthopnea, syncope or near syncope, denied lightheadedness/dizziness since previous visit. Overall states she is doing well and denied any activity limiting symptoms. Review of Systems Constitutional: Negative. Respiratory: Negative. Cardiovascular: Negative. Neurological: Negative. All other systems reviewed and are negative. Visit Vitals BP 126/78 (BP Location: Left arm, Patient Position: Sitting, BP Cuff Size: Large adult) Pulse 55 Ht 1.676 m (5' 6 ) Wt 112 kg (247 lb) SpO2 98% BMI 39.87 kg/m??? Smoking Status Never BSA 2.28 m??? No Known Allergies Medications: Current Outpatient Medications on File Prior to Visit Medication Sig Dispense Refill aspirin 81 mg EC tablet Take 81 mg by mouth in the morning. buPROPion XL (Wellbutrin XL) 150 mg 24 hr tablet Take 150 mg by mouth in the morning. escitalopram (Lexapro) 20 mg tablet Take 20 mg by mouth in the morning. lisinopril 40 mg tablet Take 40 mg by mouth in the morning. metoprolol succinate XL (Toprol-XL) 25 mg 24 hr tablet Take 1 & 1/2 tablets by mouth by mouth every day 135 tablet 3 No current facility-administered medications on file prior to visit. Physical Exam: Constitutional: Appearance: Normal appearance. Without apparent distress HENT: Head: Normocephalic and atraumatic. Nose: Nose normal. Mouth/Throat: Mouth: Mucous membranes are moist. Eyes: Extraocular Movements: Extraocular movements intact. Conjunctiva/sclera: Conjunctivae normal. Neck: Vascular: No JVD. Cardiovascular: Rate and Rhythm: Normal rate and regular rhythm. Pulses: Dorsalis pedis pulses are 3 on the right side and 3on the left side. Posterior tibial pulses are 3 on the right side and 3 on the left side. Heart sounds: Normal heart sounds, S1 normal and S2 normal. Pulmonary: Effort: Pulmonary effort is normal. Breath sounds: Normal breath sounds. Abdominal: General: Bowel sounds are normal. Palpations: Abdomen is soft. Musculoskeletal: General: Normal range of motion. Cervical back: Normal range of motion. Right lower leg: No edema. Left lower leg: No edema. Skin: General: Skin is warm and dry. Capillary Refill: Capillary refill takes less than 2 seconds. Neurological: General: No focal deficit present. Mental Status: She is alert and oriented to person, place, and time. Psychiatric: Mood and Affect: Mood normal. Behavior: Behavior normal. Thought Content: Thought content normal. Judgment: Judgment normal. Labs: Reviewed from 07/2022 CBC stable Renal function normal Liver function normal Last lab values have been reviewed CV Testing: No echocardiogram results found for the past 12 months Assessment/Plan: Syncope and collapse Remains stable, denied any syncope or near syncope since last visit Mixed hyperlipidemia Lipid abnormalities are stable Continue lifestyle and diet modifications Annual labs with PCP Benign essential HTN Hypertension is well controlled 126/78 Continue lisinopril and toprol PVC (premature ventricular contraction) Continue toprol Intermittent palpitations Continue toprol RTC 1 year or earlier if needed [facility] 09-29-2022 Note Hypertension is well controlled 126/78 Continue lisinopril and toprol [facility] 09-29-2022 Note Lipid abnormalities are stable Continue lifestyle and diet modifications Annual labs with PCP [facility] 09-29-2022 Note Remains stable, mo ed any syncope or near syncope since last visit [facility] 09-13-2022 Evaluation note Encounter Date Diagnosis Assessment Notes Sep, Mild episode of recurrent major depressive disorder (ICD-10 - F33.0) [facility] Other 04-25-2023 Evaluation note* Encounter Date Diagnosis Assessment Notes Treatment Notes Treatment Clinical Notes Jul, Primary hypertension (ICD-10 - I10) This patient is instructed to consume a healthy, low-fat, low-salt diet. They are also encouraged to continue exercise to achieve/maintain a normal BMI. Jul, Wellness examination (ICD-10 - Z00.00) Healthy diet and exercise. Reviewed age-appropriate preventive testing recommended. Jul, Ventricular bigeminy (ICD-10 - I49.8) Controlled, avoid stimulants, continue BB therapy and Exercise Jul, ROSSANA (obstructive sleep apnea) (ICD-10 - G47.33) This patient is aware of the benefits associated with ROSSANA: With continued use, the patient reduces the risk for MD, CVA, HTN, cardiac dysrhythmias and sudden cardiac deaths.The patient is also aware of the association between ROSSANA and morning headaches, daytime somnolence, fatigue and obesity, which also has been improved with continued use.The patient is compliant with treatment, wearing the equipment every night for greater than 4 hours.The patient is instructed to continue use of the CPAP for ROSSANA treatment. Will call sleep clinic to see if parameters are adequate Jul, Mild episode of recurrent major depressive disorder (ICD-10 - F33.0) Stable w/ dual therapy w/ Wellbutrin and Lexapro Jul, Screening mammogram for breast cancer (ICD-10 - Z12.31) [facility] Other 04-07-2023 Evaluation note* Encounter Date Diagnosis Assessment Notes Treatment Notes Treatment Clinical Notes Jul, Wellness examination (ICD-10 - Z00.00) [facility] Other 12-03-2022 Evaluation note* Encounter Date Diagnosis Assessment Notes Treatment Notes Treatment Clinical Notes Mar, Sore throat (ICD-10 - J02.9) Mar, Acute bacterial conjunctivitis of both eyes (ICD-10 - H10.33) Use medication as directed. Recommend discarding makeup if applicable. Need to wash linens on bed. If you wear contacts dispose of them or if not disposable then must thoroughly decontaminate the contacts before wearing them again. Contact eye doctor if symptoms are not improved by Tuesday. If any changes in vision occurs then recommend going to ER immediately Mar, Body aches (ICD-10 - R52) Mar, Bronchitis (ICD-10 - J40) Take medications as directed. Rest and increase fluid intake. Take meds with food to prevent stomach upset. Use inhaler as needed for coughing spells and SOB. It is better to use inhaler a few times a day over the next 2-3 days. Follow up with primary care provider if symptoms do not improve with treatment plan, although it may take a few weeks for the cough to go away Mar, Bilateral acute otitis media (ICD-10 - H66.93) Ear infections are often a secondary infection caused from an URI, the flu or allergies. Take medication as directed. Complete all doses, even if you feel better. Tylenol or ibuprofen can help with pain. Warm pack to area for comfort helps as well. Follow up with primary care provider if no improvement of symptoms. [facility] Other Evaluation noteNo InformationNort [employer] Other Evaluation note* Diagnosis Onset Date Resolution Status Epigastric abdominal pain ac [place] Hypertension acute S/P cholecystectomy noneacti [facility] Work Phone: [facility] Narrative - Reported* Type Description Date Medical History HYPERTENSION Medical History DEPRESSION Surgical History GALL BLADDER Surgical History APPENDIX Surgical History LAZY EYE SURGERY Surgical History TONSILS Hospitalization History SEE ABOVE [facility] Other [facility] Narrative - Reported* Type Description Date Medical History HYPERTENSION Medical History DEPRESSION Medical History Mild episode of recurrent major depressive disorder Medical History Primary hypertension Medical History Ventricular bigeminy Medical History Obstructive sleep apnea Surgical History GALL BLADDER Surgical History APPENDIX Surgical History LAZY EYE SURGERY Surgical History TONSILS Surgical History RIGHT FOOT SURGERY Surgical History COLONOSCOPY Hospitalization History SEE ABOVE [facility] Other Summary Purpose Family History No Family History Records Found Relationship Condition Age at Onset Recorded Date/T david Not Specified Unknown Diabetes mellitus Unknown Advance Directives No Advanced Directives Records Found Advance Directive Response Recorded Date/ Time Advance Directives No July 10 11:11am Chief Complaint and Reason for Visit Chief Complaint abdominal pain Reason for Visit Epigastric abdominal pain Hypertension S/P cholecystectomy Additional Source Comments INFORMATION SOURCE (unrecogn ized section and content) DATE CREATED AUTHOR 03/19/2018 [facility] DATE CREATED AUTHOR AUTHOR'S JEYSONIZ ATION 08/25/2022 [facility] DATE CREATED AUTHOR AUTHOR'S ORGANIZ ATION 08/04/2023 [facility] DATE CREATED AUTHOR AUTHOR'S ORGANIZ ATION 08/16/2023 [facility] EPIC REASON FOR VISIT (unrecogniz ed section and content) PINK EYE SORE THROATprescrip tion refillLab Work RequestedwellnessrefillRefill Care Teams (unrecognized sec tion and content) Team Status: Active Member Role Status Dates PHYSICIAN NO FAMILY Primary Care Provider Active Team Status: Inactive Member Role Status Dates PHYSICIAN NO FAMILY Primary Care Provider Active Start: July 11, 2023 End: July 11, 2023 Harjinder Denny DO Attending Provider Active Sta rt: July 11, 2023 End: July 11, 2023 Goals (unrecognized section and content) Goals may be documented in a n alternate section FOR RECORDS PERTAINING TO PATIENTS WHO ARE OR HAVE BEEN ENROLLED IN A CHEMICAL DEPENDENCY/SUBSTANCEABUSE PROGRAM, SOME INFORMATION MAY BE OMITTED. This clinical summary was aggregated from multiple sources. Caution should be exercised in using it in the provision of clinical care. This summary normalizes information from multiple sources, and as a consequence, information in this document may materially change the coding, format and clinical context of patient data. In addition, data may be omitted in some cases. CLINICAL DECISIONS SHOULD BE BASED ON THE PRIMARY CLINICAL RECORDS. [employer] provides no warranty or guarantee of the accuracy or completeness of information in this document.
== END 2023-08-25 09:53 | disposition home or self-care (01) ==
PROVIDERS: PCP Internal Medicine; Visit Provider Nurse Practitioner Family
DX: I49.3 Ventricular premature depolarization (principal); I10 Essential (primary) hypertension
CPT/HCPCS: 93306

== ENCOUNTER 2023-12-14 10:54 | Outpatient (OUT) | payer BC, SELFPAY ==
--- NOTE | 2023-12-14 | MM_ITS ---
Patient Name: MAN PATTERSON MR#: [id number] : 1965 Exam Date: 12/14/2023 Ordering Doctor: DR Harjinder Saavedra D.O. RADIOLOGY REPORT PROCEDURE: MM TOMOSYNTHESIS SCREENING BI COMPARISON: MG MAMM SCREEN 3D BIPIN CAD, 08/25/2022. MG MAMM SCREEN 3D BIPIN CAD, 12/17/2020. MG MAMM SCREEN BIPIN W CAD, 12/05/2019. MG MAMM BIPIN SCRN W CAD DIG, 06/27/2015. INDICATIONS: Screening Calculator Name NCI Breast Cancer Risk Assessment Tool 5 Year Breast Cancer Risk 1.50% Lifetime Breast Cancer Risk 8.30% Personal Breast Cancer No Personal Ovarian Cancer No Treatments None Family Cancers Grandmother-paternal with ovarian cancer at age ~60; Grandfather-paternal with brain cancer at age ~80. LOCATION: [facility] BREAST COMPOSITION: There are scattered areas of fibroglandular density. FINDINGS: DIAGNOSTIC CATEGORY 1--NEGATIVE. RIGHT BREAST: No significant suspicious finding. No significant change has occurred. LEFT BREAST: No significant suspicious finding. No significant change has occurred. RECOMMENDATIONS: ROUTINE MAMMOGRAM AND CLINICAL EVALUATION IN 12 MONTHS. PLEASE NOTE: A NORMAL MAMMOGRAM DOES NOT EXCLUDE THE POSSIBILITY OF BREAST CANCER. A CLINICALLY SUSPICIOUS PALPABLE LUMP SHOULD BE BIOPSIED. Dictated by: Armani Singer M.D. on 12/16/2023 at 12:50 Approved by: Armani Singer M.D. on 12/16/2023 at 12:52
--- OUTSIDE RECORDS SUMMARY | 2023-12-14 11:02 | XMS_ITS | CCD ---
Author Organization [facility] Care Team Providers Care Manager Strategic Name Role Phone PHYSICIAN, DEFAULT Unavailable Unavailable PHYSICIAN, DEFAULT Unavailable Unavailable Rosemary Manriquez Unavailable Harjinder Denny Unavailable DENISHA, DR GREENWOOD Admitting Unavailable BALL, DR GREENWOOD Attending Unavailable BALL, DR GREENWOOD Consulting Unavailable BALL, DR GREENWOOD Primary Care Unavailable BALL, DR GREENWOOD Primary Care Unavailable BALL, DR GREENWOOD Admitting Unavailable BALL, DR GREENWOOD Attending Unavailable BALL, DR GREENWOOD Consulting Unavailable VISHNU COVNIGTON Attending Unavailable HARJINDER DENNY Referring Unavailable DENISHA, HARJINDER Tran Primary Care Unavailable CHARLIE JOEL Attending Unavailable DENISHA, HARJINDER Tran Referring Unavailable DENISHA, HARJINDER Tran Primary Care Unavailable GLADIS VILLASEÑOR Attending Unavailable GLADIS VILLASEÑOR Attending Unavailable Allergies Allergy Classification Reported Allergen(s) Allergy Type Date of Onset Reaction(s) Facility (1 source) [facility] Drug Allergy 7 [facility] Repository (1 source) patient allergy list reviewed by nurse or physicia Propensity to adverse reactions 9 Comment:Done [facility] Other (1 source) Allergies Reconciled Propensity to adverse reactions Unknown [employer] Other (2 sources) BEE VENOM PROTEIN (HONEY BEE); Translations: [BEE VENOM PROTEIN (HONEY BEE)] Propensity to adverse reactions to drug (disorder) 4 [facility] Repository Medications Current Medications Medication Drug Class(es) Dates Sig (Normalized) Sig (Original) [id number] 200 actuat albuterol 0.09 mg/actuat metered dose [...] Problem Date Documented Da te Episodic/Chronic Abdominal hernia (1 source) Hernia of abdominal cavity Onset: 4 Episodic Abdominal pain (2 sources) Epigastric pain; Translations: [...] [Other specified cardiac arrhythmias] Onset: 9 Chronic Cardiac dysrhythmias (2 sources) Palpitations; Translations: [Palpitations] Onset: 4 Episodic Chronic obstructive pulmonary disease and bronchiectasis (1 source) Bronchitis, not specified as acute or chronic Episodic Essential hypertension (9 sources) Essential hypertension; Translations: [Essential (primary) hypertension] Onset: 4 Chronic Headache; including migraine (2 sources) Migraine [...] Translations: [Other forms of dyspnea] Episodic Other lower respiratory disease (2 sources) Other forms of dyspnea; Translations: [Other forms of dyspnea] Onset: 4 Episodic Other nutritional; endocrine; and metabolic disorders [...] apnea (adult) (pediatric) Chronic Residual codes; unclassified (2 sources) Pain, unspecified; Translations: [Pain, unspecified] Onset: 4 Episodic Residual codes; unclassified (1 source) Acquired [...] Classification Problem Date Documented Da te Episodic/Chronic Other and unspecified benign neoplasm (1 source) [...] organ] Onset: 10-25-2018 Resolved: 10-28-2019 Episodic Syncope (1 source) Syncope and collapse; Translations: [Syncope and collapse] Onset: 05-08-2018 Episodic Results Test Name Value Interpretation Reference Range Facility Office Visiton 10-26-2023 Follow-up visit [id number] Josephine Salas Marlon 1965 F Date Provider Department Center 10/26/2023 GLADIS GOVEA Family History Problem Relation Age of Onset Diabetes Mother Hypertension Father Hyperlipidemia Father Cancer Father Comments: CLL Family Status - Relation Status Age at Mother Father Level of Service:53190 [place] OFFICE/OUTPATIENT ESTABLISHED MOD MDM 30 MIN Reason for Visit and Comments: Follow-up [638788] - 3 month Follow up - go over echo results Normal [facility] Orders Onlyon 09-15-2023 Orders Only [id number] Josephine Salas Marlon 1965 F Date Provider Department Center 09/15/2023 SHERICE HILL No family history on file Normal [facility] Office Visiton 08-02-2023 Follow-up visit [id number] Flaco Salasdimitris Mason 1965 F Date Provider Department Center 08/02/2023 GLADIS GOVEA No family history on file Level of Service:12065 [place] OFFICE/OUTPATIENT ESTABLISHED MOD MDM 30 MIN Reason for Visit and Comments: Hypertension [199937] Normal [facility] CBC AUTO DIFFon 07-28-2022 BASO # 0.1 103/ul Normal 0.0-0.1 [facility] Comment on above: Performed By: #### C #### [facility] [address] [place] [address] Dr. Jakub Chen Basophils/100 WBC (Bld) 0.6 % Normal 0.2-2.0 [facility] Comment on above: Performed By: #### C BC #### [facility] [address] [place] [address] Dr. Jakub Chen EO # 0.3 103/ul Normal 0.0-0.7 [facility] Comment on above: Performed By: #### C BC #### [facility] [address] [place] [address] Dr. Jakub Chen Eosinophils/100 WBC (Bld) 3.8 % Normal 0.9-7.0 [facility] Comment on above: Performed By: #### C BC #### [facility] [address] [place] [address] Dr. Jakub Chen Erythrocyte distribution width (RBC) [Ratio] 13.5 % Normal 11.0-15.0 [facility] Comment on above: Performed By: #### C BC #### [facility] [address] [place] [address] Dr. Jakub Chen Hematocrit (Bld) [Volume fraction] 45.6 % Normal 36.0-48.0 [facility] Comment on above: Performed By: #### C BC #### [facility] [address] [place] [address] Dr. Jakub Chen Hemoglobin (Bld) [Mass/Vol] 14.3 g/dL Normal 12.0-16.0 [facility] Comment on above: Performed By: #### C BC #### [facility] [address] [place] [address] Dr. Jakub Chen IG # 0.02 10e3/ul Normal 0.00-0.03 [facility] Comment on above: Performed By: #### C BC #### [facility] [address] [place] [address] Dr. Jakub Chen IG % 0.3 % Normal 0.0-0.5 [facility] Comment on above: Performed By: #### C BC #### [facility] [address] [place] [address] Dr. Jakub Chen LYMPH # 1.7 103/ul Normal 1.2-3.8 [facility] Comment on above: Performed By: #### C BC #### [facility] [address] [place] [address] Dr. Jakub Chen Lymphocytes/100 WBC (Bld) 22.1 % Normal 20.5-60.0 [facility] Comment on above: Performed By: #### C BC #### [facility] [address] [place] [address] Dr. Jakub Chen MANUAL DIFF REQ NO Normal [facility] Comment on above: Performed By: #### C BC #### [facility] [address] [place] [address] Dr. Jakub Chen MCH (RBC) [Entitic mass] 27.8 pg Normal 26.7-34.0 [facility] Comment on above: Performed By: #### C BC #### [facility] [address] [place] [address] Dr. Jakub Chen MCHC (RBC) [Mass/Vol] 31.4 g/dL Normal 29.9-35.2 [facility] Comment on above: Performed By: #### C BC #### [facility] [address] [place] [address] Dr. Jakub Chen MCV (RBC) [Entitic vol] 88.5 fL Normal 81.0-99.0 [facility] Comment on above: Performed By: #### C BC #### [facility] [address] [place] [address] Dr. Jakub Chen MONO # 0.6 103/ul Normal 0.3-0.8 [facility] Comment on above: Performed By: #### C BC #### [facility] [address] [place] [address] Dr. Jakub Chen Monocytes/100 WBC (Bld) 7.9 % Normal 1.7-12.0 [facility] Comment on above: Performed By: #### C BC #### [facility] [address] [place] [address] Dr. Jakub Chen NEUT # 5.1 103/ul Normal 1.4-6.5 [facility] Comment on above: Performed By: #### C BC #### [facility] [address] [place] [address] Dr. Jakub Chen Neutrophils/100 WBC (Bld) 65.3 % Normal 43.0-75.0 [facility] Comment on above: Performed By: #### C BC #### [facility] [address] [place] [address] Dr. Jakub Chen Platelet mean volume (Bld) [Entitic vol] 9.1 fL Critically low 9.5-13.5 [facility] Comment on above: Performed By: #### C BC #### [facility] [address] [place] [address] Dr. Jakub Chen PLT 277 103/ul Normal 150-450 [facility] Comment on above: Performed By: #### C BC #### [facility] [address] [place] [address] Dr. Jakub Chen RBC 5.15 106/ul Normal 4.20-5.40 [facility] Comment on above: Performed By: #### C BC #### [facility] [address] [place] [address] Dr. Jakub Chen WBC 7.7 103/ul Normal 4.0-11.0 [facility] Comment on above: Performed By: #### C BC #### [facility] [address] [place] [address] Dr. Jakub Chen GLYCOHEMOGLOBIN A1Con 2022 ADA RECOMMENDATION SEE BELOW Normal [facility] Comment on above: Result Comment: ADA RECOMMENDED LIMIT 4.0 - 6.0 ADA THERAPEUTIC TARGET < 7.0 ACTION SUGGESTED > 7.0 Performed By: #### A 1C #### [facility] [address] [place] [address] Dr. Jakub Chen Glucose [Mass/Vol] 108 mg/dL Normal [facility] Comment on above: Performed By: #### A 1C #### [facility] [address] [place] [address] Dr. Jakub Chen HbA1c (Bld) [Mass fraction] 5.4 % Normal 4.5-6.2 [facility] Comment on above: Performed By: #### A 1C #### [facility] [address] [place] [address] Dr. Jakub Chen LIPID PROFILEon 07-28-2022 CHOL-HDL RATIO NORM SEE BELOW Normal [facility] Comment on above: Result Comment: 3.3 - 4.4 LOW RISK 4.4 - 7.1 AVERAGE RISK 7.1 - 11.0 MODERATE RISK >11.0 HIGH RISK Performed By: #### T SH, CMP, LIPID #### [facility] [address] [address] [address] Jakub Chen Cholesterol [Mass/Vol] 207 mg/dL Critically high <=200 [facility] Comment on above: Performed By: #### T SH, CMP, LIPID #### [facility] [address] [place] [address] Dr. Jakub Chen Cholesterol in HDL [Mass/Vol] 57 mg/dL Normal 40-60 [facility] Comment on above: Performed By: #### T SH, CMP, LIPID #### [facility] [address] [address] [address] Jakub Chen Cholesterol in LDL [Mass/Vol] 129.2 mg/dL Normal [facility] Comment on above: Performed By: #### T SH, CMP, LIPID #### [facility] [address] [address] [address] Jakub Chen Cholesterol.total/Ch olesterol in HDL [Mass ratio] 3.6 {ratio} Normal [facility] Comment on above: Performed By: #### T SH, CMP, LIPID #### [facility] [address] [place] [address] Dr. Jakub Chen HDL NORMAL > or = 60 mg/dl - LOW CARDIOVASCULAR RISK <40 mg/dl - HIGH CARDIOVASCULAR RISK Normal [facility] Comment on above: Performed By: #### T SH, CMP, LIPID #### [facility] [address] [place] [address] Dr. Jakub Chen LDL CALC NORMAL SEE BELOW Normal [facility] Comment on above: Result Comment: <100 mg/dl OPTIMAL 100 - 129 mg/dl NEAR OR ABOVE OPTIMAL 130 - 159 mg/dl BORDERLINE HIGH 160 - 189 mg/dl HIGH >190 mg/dl VERY HIGH Performed By: #### T SH, CMP, LIPID #### [facility] [address] [address] [address] Jakub Chen Triglyceride [Mass/Vol] 104 mg/dL Normal <=150 [facility] Comment on above: Performed By: #### T SH, CMP, LIPID #### [facility] [address] [address] [address] Jakub Chen VLDL CALC 20.8 mg/dL Normal [facility] Comment on above: Performed By: #### T SH, CMP, LIPID #### [facility] [address] [address] [address] Jakub Chen MICROALBUMIN, RAND URon 04- mALB <1.3 Normal <=30.0 [facility] Comment on above: Performed By: #### M ALBR #### [facility] [address] [address] [address] Jakub Chen PROF 14(COMP METB)on 023 Albumin [Mass/Vol] 3.5 g/dL Normal 3.4-5.0 [facility] Comment on above: Performed By: #### T SH, CMP, LIPID #### [facility] [address] [address] [address] Jakub Chen Albumin/Globulin [Mass ratio] 1.0 {ratio} Normal [facility] Comment on above: Performed By: #### T SH, CMP, LIPID #### [facility] [address] [address] [address] Jakub hCen ALP [Catalytic activity/Vol] 126 U/L Critically high 46-116 [facility] Comment on above: Performed By: #### T SH, CMP, LIPID #### [facility] [address] [address] [address] Jakub Chen ALT [Catalytic activity/Vol] 16 U/L Normal 14-59 [facility] Comment on above: Performed By: #### T SH, CMP, LIPID #### [facility] [address] [address] [address] Jakub Chen Anion gap [Moles/Vol] 11.7 mmol/L Normal [facility] Comment on above: Performed By: #### T SH, CMP, LIPID #### [facility] [address] [address] [address] Jakub Chen AST [Catalytic activity/Vol] 14 U/L Critically low 15-37 [facility] Comment on above: Performed By: #### T SH, CMP, LIPID #### [facility] [address] [address] [address] Jakub Chen Bilirubin [Mass/Vol] 0.3 mg/dL Normal 0.2-1.0 [facility] Comment on above: Performed By: #### T SH, CMP, LIPID #### [facility] [address] [place] [address] Dr. Jakub Chen Calcium [Mass/Vol] 8.9 mg/dL Normal 8.5-10.1 [facility] Comment on above: Performed By: #### T SH, CMP, LIPID #### [facility] [address] [place] [address] Dr. Jakub Chen Chloride [Moles/Vol] 108 mmol/L Critically high 98-107 [facility] Comment on above: Performed By: #### T SH, CMP, LIPID #### [facility] [address] [address] [address] Jakub Chen CO2 [Moles/Vol] 28.2 mmol/L Normal 21.0-32.0 [facility] Comment on above: Performed By: #### T SH, CMP, LIPID #### [facility] [address] [place] [address] Dr. Jakub Chen Creatinine [Mass/Vol] 1.01 mg/dL Normal 0.55-1.02 [facility] Comment on above: Performed By: #### T SH, CMP, LIPID #### [facility] [address] [place] [address] Dr. Jakub Chen EGFR-AF EGYPTIAN >60 Normal >=60 [facility] Comment on above: Performed By: #### T SH, CMP, LIPID #### [facility] [address] [place] [address] Dr. Jakub Chen EGFR-NON AF EGYPTIAN 56 mL/min/1.73m2 Critically low >=60 [facility] Comment on above: Performed By: #### T SH, CMP, LIPID #### [facility] [address] [address] [address] Jakub Chen Globulin (S) [Mass/Vol] 3.5 g/dL Normal [facility] Comment on above: Performed By: #### T SH, CMP, LIPID #### [facility] [address] [place] [address] Dr. Jakub Chen Glucose [Mass/Vol] 95 mg/dL Normal 74-106 [facility] Comment on above: Performed By: #### T SH CMP, LIPID #### [facility] [address] [place] [address] Dr. Jakub Chen Potassium [Moles/Vol] 4.9 mmol/L Normal 3.5-5.1 [facility] Comment on above: Performed By: #### T SH, CMP, LIPID #### [facility] [address] [place] [address] Dr. Jakub Chen Protein [Mass/Vol] 7.0 g/dL Normal 6.4-8.2 [facility] Comment on above: Performed By: #### T SH, CMP, LIPID #### [facility] [address] [place] [address] Dr. Jakub Chen Sodium [Moles/Vol] 143 mmol/L Normal 136-145 [facility] Comment on above: Performed By: #### T SH, CMP, LIPID #### [facility] [address] [place] [address] Dr. Jakub Chen Urea nitrogen [Mass/Vol] 13.0 mg/dL Normal 7.0-18.0 [facility] Comment on above: Performed By: #### T SH, CMP, LIPID #### [facility] [address] [address] [address] Jakub Chen Urea nitrogen/Creatinine [Mass ratio] 12.9 mg/mg Normal [facility] Comment on above: Performed By: #### T SH, CMP, LIPID #### [facility] [address] [address] [address] Jakub Chen TSHon 07-28-2022 TSH 1.406 uIU/mL Normal 0.358-3.740 [facility] Comment on above: Performed By: #### T SH, CMP, LIPID #### [facility] [address] [place], [place] [address] Dr. Jakub Chen COVID/FLU RT-PCRon SARS-CoV-2 (COVID-19) RNA RUSS+probe Ql (Unsp spec) Negative [employer] Other COVID/FLU RT-PCR Negative [employer] Other [facility] 03-13-2022 S. pyogenes Org specific cx Ql (Throat) Negative [employer] Other Quick [facility] [employer] Other Vital Signs Date Time Vital Sign Value Performing Clinician Facility 07-11-2023 11:47-0400 Body height 167.64 cm [facility] 07-11-2023 11:47-0400 Body mass index (BMI) [Ratio] 40.2 kg/m2 [facility] 07-11-2023 11:47-0400 Body weight 113.05 kg [facility] 07-11-2023 11:47-0400 Diastolic blood pressure 111 mm[Hg] [facility] 07-11-2023 11:47-0400 Heart rate 75 /min [facility] 07-11-2023 11:47-0400 Respiratory rate 12 /min [facility] 07-11-2023 11:47-0400 Systolic blood pressure 162 mm[Hg] [facility] 08-03-2022 11:30-0400 Body height 167.64 cm Harjinder Ball Other [facility] Other 08-03-2022 11:30-0400 Body mass index (BMI) [Ratio] 38.22 kg/m2 Harjinder Ball Other [facility] Other 08-03-2022 11:30-0400 Body weight 107.41 kg Harjinder Ball Other [facility] Other 08-03-2022 11:30-0400 Diastolic blood pressure 78 mm[Hg] Harjinder Ball Other [facility] Other 08-03-2022 11:30-0400 Respiratory rate 12 /min Harjinder Ball Other [facility] [employer] [facility] Other 08-03-2022 11:30-0400 Systolic blood pressure 122 mm[Hg] Harjinder Ball Other [facility] Other 03-13-2022 12:15-0500 Body height 167.64 cm Rosemary Larsonault Other [facility] Other 03-13-2022 12:15-0500 Body mass index (BMI) [Ratio] 36.63 kg/m2 Rosemary Declan Other [facility] Other 03-13-2022 12:15-0500 Body temperature 99.3 [degF] Rosemary Declan Other [facility] Other 03-13-2022 12:15-0500 Body weight 102.97 kg Rosemary Declan Other [facility] Other 03-13-2022 12:15-0500 Diastolic blood pressure 86 mm[Hg] Rosemary Declan Other [facility] Other 03-13-2022 12:15-0500 Respiratory rate 20 /min Rosemary Manriquez Other [facility] Other 03-13-2022 12:15-0500 SaO2% (BldA) [Mass fraction] 97 % Rosemary Manriquez Other [facility] Other 03-13-2022 12:15-0500 Systolic blood pressure 132 mm[Hg] Rosemary Manriquez Other [employer] Other Encounters Encounter Date Encounter Type Care Provider Facility Start: 10-26-2023 End: 10-26-2023 ambulatory [facility] Start: 09-06-2023 ambulatory HARJINDER [facility] Start: 08-31-2023 End: 08-31-2023 ambulatory CHARLIE JOEL [facility] Start: 08-30-2023 ambulatory HARJINDER DENNY [facility] Start: 08-15-2023 End: 08-15-2023 ambulatory VISHNU COVINGTON Not Available Start: 08-02-2023 End: 08-03-2023 ambulatory [facility] Start: 07-11-2023 End: 07-11-2023 ambulatory [facility] Work Phone: Start: 07-11-2023 End: 07-11-2023 Patient encounter procedure [facility] Work Phone: Start: 12-28-2022 End: 12-28-2022 ambulatory Harjinder Denny Other [facility] Other Start: 12-28-2022 Telephone encounter Harjinder Denny [facility] Start: 09-13-2022 End: 09-13-2022 ambulatory Harjinder Denny Other [facility] Other Start: 09-13-2022 Telephone encounter Harjinder Denny [facility] Start: 08-25-[address] HARJINDER DENNY Facili ty:[facility] Start: 08-03-2022 End: 08-03-2022 ambulatory Harjinder Denny Other [facility] Other Start: 08-03-2022 Encounter for genera l adult medical examination without abnormal findings Harjinder Denny [facility] Start: 08-03-2022 Periodic preventive med est patient 40-64yrs Harjinder Denny [facility] Start: 08-02-2022 Encounter for genera l adult medical examination without abnormal findings DR HARJINDER DENNY [facility] Start: 07-28-2022 End: 07-29-[address] HARJINDER DENNY Facility:[facility] Start: 07-28-2022 End: 07-29-2022 Encounter for general adult medical examination without abnormal findings DR HARJINDER DENNY Facility:[facility] Start: 07-16-2022 End: 07-16-2022 ambulatory Harjinder Denny Other [facility] Other Start: 07-16-2022 Encounter for genera l adult medical examination without abnormal findings Harjinder Denny [facility] Start: 07-16-2022 Telephone encounter Harjinder GOSS [facility] Start: 06-21-2022 End: 06-21-2022 ambulatory Harjinder Denny Other [facility] Other Start: 06-21-2022 Telephone encounter Harjinder GOSS [facility] Start: 04-06-2022 Gynecological examination abnormal Harjinder Denny Other [facility] Other Start: 04-06-2022 Gynecological examination normal Harjinder Denny Other [facility] Other Start: 03-13-2022 End: 03-13-2022 ambulatory Rosemary Manriquez Other [facility] Other Start: 03-13-2022 Office outpatient ne w 20 minutes Rosemary Manriquez [facility] Start: 02-04-2020 Adult health examination Reinaldo Denny Other [employer] [employer] Other Start: 02-10-2018 End: 02-11-2018 Patient encounter procedure DEFAULT PHYSICIAN Facility:[facility] Procedures Date Procedure Procedure Detail Performing Clinician Depression screening Polina Denny Other Screening for malign ant neoplasm of breast Harjinder Denny Other Screening for malign ant neoplasm of skin Harjinder Denny Other Plan of Treatment Date Care Activity Detail Author Comprehensive metabo lic 2000 panel - Serum or Plasma [facility] enter [facility] Immunizations Immunization Date Immunization Notes Care Provider Fa cility 01-30-2021 COVID-19 Vaccine Mod ijeoma - Documentation Purposes Only Harjinder Denny Other [facility] 05-15-2020 COVID-19 Vaccine Mod ijeoma - Documentation Purposes Only Harjinder Denny Other [facility] 04-17-2020 COVID-19 Vaccine Mod ijeoma - Documentation Purposes Only Harjinder Denny Other [facility] Payers Date Payer Category Payer [employer] [id number] 1965 Unknown [id number] 1965 Unknown [id number] 1965 Unknown [id number] 1965 Unknown [id number] 1965 Unknown [id number] 1965 Unknown [id number] 1965 Unknown [id number] Unknown Unknown [id number] 2. [id number] Unknown MMO-DO NOT USE [id number] Social History Date Type Detail Facility Unknown if ever smoked [facility] Other Sex Assigned At Sex Assigned At Bir th [facility] Other Start: 1965 Sex Assigned At Female F [facility] Clinical Notes 03-13-2022 to 10-26-2023 Note Date & Type Note Facility 10-26-2023 Note Cardiovascular Medic [facility] SUBJECTIVE Chief Complaint Patient presents with Follow-up 3 month Follow up - go over echo results Josephine Salas is a 58 y.o. female here for follow-up. 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 Patient here c/o [...] for the past 2 weeks for HTN. 10/26/2023 Denies any changes since last seen except her BP is doing a little better. Still labile but systolic highs are in the 160s and not 180s. Palpitations occurring every other day or so. Lasts 10-20 seconds. HR has been ranging 40-50s - asymptomatic. C/o feel SOB more often. SOB occurs with exertion, walking up stairs, getting out of the shower. She has occasional dizziness/LH. Patient Active Problem List Diagnosis Syncope and collapse Mixed hyperlipidemia Benign essential HTN Intermittent palpitations Hypertensive disorder PVC (premature ventricular contraction) Epigastric abdominal pain Past Medical History: Diagnosis Date Benign essential HTN 09/08/2022 Intermittent palpitations 09/08/2022 Mixed hyperlipidemia 09/08/2022 PVC (premature ventricular contraction) 09/29/2022 Syncope and collapse 09/08/2022 Family History Problem Relation Name Age of Onset Diabetes Mother Hypertension Father Hyperlipidemia Father Cancer Father CLL Social History Tobacco Use Smoking status: Never Smokeless tobacco: Never Allergies Allergen Reactions Bee Venom Protein (Honey Bee) Anaphylaxis ROS Cardiovascular: Positive for dyspnea on exertion, irregular heartbeat and palpitations. Respiratory: Positive for shortness of breath. Neurological: Positive for headaches and light-headedness (occasional). All other systems reviewed and are negative. OBJECTIVE Visit Vitals BP 110/74 (BP Location: Left arm, Patient Position: Sitting, BP Cuff Size: Adult) Pulse 54 Resp 12 Ht 1.676 m (5' 6 ) Wt 112 kg (248 lb) SpO2 98% BMI 40.03 kg/m??? Smoking Status Never BSA [...] mouth in the morning., Disp: , Rfl: lisinopril 20 mg tablet, Take 1 tablet (20 mg) by mouth in the morning and at bedtime., Disp: 180 tablet, Rfl: 3 nebivolol (Bystolic) 5 mg tablet, Take 1 tablet (5 mg) by mouth in the morning. Replacing metoprolol, Disp: 90 tablet, Rfl: 3 Physical Exam Vitals reviewed. [...] Normal pulses. Heart sounds: Normal heart sounds. Comments: Premature beats heart on exam Pulmonary: Effort: Pulmonary effort is normal. Breath [...] testing 02/02/2018: normal CBC, BMP, thyroid. LDL 135 (more content not included)... [facility] 08-02-2023 Note Cardiovascular Medic [facility] SUBJECTIVE Chief Complaint Patient presents with Hypertension Josephine Salas is a 58 y.o. female here for follow-up. 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 Patient here c/o [...] She is sym (more content not included)... [facility] 08-02-2023 Note Patient here c/o hyp ertension. [...] All other systems reviewed and are negative. [facility] 09-13-2022 Evaluation note Encounter Date Diagnosis Assessment Notes Sep, Mild episode of recurrent major depressive disorder (ICD-10 - F33.0) [facility] Other 04-25-2023 Evaluation note* Encounter Date Diagnosis [...] use, the patient reduces the risk for MA, CVA, HTN, cardiac dysrhythmias and sudden cardiac [...] mammogram for breast cancer (ICD-10 - Z12.31) [facility] Other 04-07-2023 Evaluation note* Encounter Date Diagnosis Assessment Notes Treatment Notes Treatment Clinical Notes Jul, Wellness examination (ICD-10 - Z00.00) [facility] Other 12-03-2022 Evaluation note* Encounter Date Diagnosis [...] care provider if no improvement of symptoms. [facility] Other Evaluation noteNo InformationNort [employer] Other Evaluation note* Diagnosis Onset Date Resolution Status Epigastric abdominal pain ac [place] Hypertension acute S/P cholecystectomy noneacti ve [facility] Work Phone: History general Narrative - Reported* Type Description Date Medical History HYPERTENSION Medical History DEPRESSION Surgical History GALL BLADDER Surgical History APPENDIX Surgical History LAZY EYE SURGERY Surgical History TONSILS Hospitalization History SEE ABOVE [facility] Other History general Narrative - Reported* Type Description Date Medical History HYPERTENSION Medical History DEPRESSION Medical History Mild episode of recurrent major depressive disorder Medical History Primary hypertension Medical History Ventricular bigeminy Medical History Obstructive sleep apnea Surgical History GALL BLADDER Surgical History APPENDIX Surgical History LAZY EYE SURGERY Surgical History TONSILS Surgical History RIGHT FOOT SURGERY Surgical History COLONOSCOPY Hospitalization History SEE ABOVE [facility] Other Summary Purpose Family History No Family [...] and content) DATE CREATED AUTHOR 03/19/2018 [facility] DATE CREATED AUTHOR AUTHOR'S ORGANIZ ATION 08/25/2022 [facility] DATE CREATED AUTHOR AUTHOR'S ORGANIZ ATION 08/16/2023 [facility] EPIC DATE CREATED AUTHOR AUTHOR'S ORGANIZ ATION 09/06/2023 [facility] DATE CREATED AUTHOR AUTHOR'S ORGANIZ ATION 10/30/2023 [facility] REASON FOR VISIT (unrecogniz ed section and [...] BE BASED ON THE PRIMARY CLINICAL RECORDS. [facility]. provides no warranty or guarantee of the accuracy or completeness of information in this document.
== END 2023-12-14 10:55 | disposition home or self-care (01) ==
LOC: MAMMO 10:54
PROVIDERS: PCP Internal Medicine; Visit Provider Internal Medicine
DX: Z12.31 Encounter for screening mammogram for malignant neoplasm of breast (principal); Z80.41 Family history of malignant neoplasm of ovary; Z80.8 Family history of malignant neoplasm of other organs or systems
CPT/HCPCS: 77063; 77067

== ENCOUNTER 2023-12-22 09:25 | Outpatient (OUT) | payer BC, SELFPAY ==
--- OUTSIDE RECORDS SUMMARY | 2023-12-22 09:30 | XMS_ITS | CCD ---
Author Organization [facility] CliniSynj Care Team Providers Care Phlebotomy Coordinator Name Role Phone PHYSICIAN, DEFAULT Unavailable Unavailable PHYSICIAN, DEFAULT Unavailable Unavailable Rosemary Manriquez Unavailable Harjnider Denny Unavailable DENISHA, DR GREENWOOD Admitting Unavailable BALL, DR GREENWOOD Attending Unavailable BALL, DR GREENWOOD Consulting Unavailable BALL, DR GREENWOOD Primary Care Unavailable BALL, DR GREENWOOD Primary Care Unavailable BALL, DR GREENWOOD Admitting Unavailable BALL, DR GREENWOOD Attending Unavailable BALL, DR GREENWOOD Consulting Unavailable VISHNU COVINGTON Attending Unavailable HARJINDER DENNY Referring Unavailable DENISHA, HARJINDER Tran Primary Care Unavailable CHARLIE JOEL Attending Unavailable DENISHA, HARJINDER Tran Referring Unavailable DENISHA, HARJINDER Tran Primary Care Unavailable GLADIS VILLASEÑOR Attending Unavailable GLADIS VILLASEÑOR Attending Unavailable Allergies Allergy Classification Reported Allergen(s) Allergy Type Date of Onset Reaction(s) Facility (1 source) Desonide Drug Allergy 7 [facility] Repository (1 source) patient allergy list reviewed by nurse or physicia Propensity to adverse reactions 9 Comment:Done [facility] Other (1 source) Allergies Reconciled Propensity to adverse reactions Unknown [facility] Other (2 sources) BEE VENOM PROTEIN (HONEY BEE); Translations: [BEE VENOM PROTEIN (HONEY BEE)] Propensity to adverse reactions to drug (disorder) 4 [facility] Repository Medications Current Medications Medication Drug Class(es) Dates Sig (Normalized) Sig (Original) [id number] 200 actuat albuterol 0.09 mg/actuat metered dose [...] Range Facility Office Visiton 10-26-2023 Follow-up visit [id number] Josephine Salas Marlon 1965 F Date Provider Department Center 10/26/2023 GLADIS GOVEA Family History Problem Relation Age of Onset Diabetes Mother Hypertension Father Hyperlipidemia Father Cancer Father Comments: CLL Family Status - Relation Status Age at Mother Father Level of Service:67974 CT OFFICE/OUTPATIENT ESTABLISHED MOD MDM 30 MIN Reason for Visit and Comments: Follow-up [027267] - 3 month Follow up - go over echo results Normal [facility] Orders Onlyon 09-15-2023 Orders Only [id number] Josephine Salas Marlon 1965 F Date Provider Department Center 09/15/2023 SHERICE HILL No family history on file Normal [facility] Office Visiton 08-02-2023 Follow-up visit [id number] Flaco Salasdimitris Mason 1965 F Date Provider Department Center 08/02/2023 GLADIS GOVEA No family history on file Level of Service:93462 CT OFFICE/OUTPATIENT ESTABLISHED MOD MDM 30 MIN Reason for Visit and Comments: Hypertension [346650] Normal [facility] CBC AUTO DIFFon 07-28-2022 BASO # 0.1 103/ul Normal 0.0-0.1 [facility] Comment on above: Performed By: #### C #### [facility] [address] [place] [address] Dr. Jakub Chen Basophils/100 WBC (Bld) 0.6 % Normal 0.2-2.0 [facility] Comment on above: Performed By: #### C BC #### [facility] [address] [place] [address] Dr. Jakub Chen EO # 0.3 103/ul Normal 0.0-0.7 [facility] Comment on above: Performed By: #### C BC #### [facility] [address] [place] [address] Dr. Jakub Chen Eosinophils/100 WBC (Bld) 3.8 % Normal 0.9-7.0 [facility] Comment on above: Performed By: #### C BC #### [facility] [address] [place] [address] Dr. Jakub Chen Erythrocyte distribution width (RBC) [Ratio] 13.5 % Normal 11.0-15.0 [facility] Comment on above: Performed By: #### C BC #### [facility] [address] [place] [address] Dr. Jakub Chen Hematocrit (Bld) [Volume fraction] 45.6 % Normal 36.0-48.0 [facility] Comment on above: Performed By: #### C BC #### [facility] [address] [place] [address] Dr. Jakbu Chen Hemoglobin (Bld) [Mass/Vol] 14.3 g/dL Normal 12.0-16.0 [facility] Comment on above: Performed By: #### C BC #### [facility] [address] [place] [address] Dr. Jakub Chen IG # 0.02 10e3/ul Normal 0.00-0.03 [facility] Comment on above: Performed By: #### C BC #### [facility] [address] [place] [address] Dr. Jakub Chen IG % 0.3 % Normal 0.0-0.5 [facility] Comment on above: Performed By: #### C BC #### [facility] [address] [place] [address] Dr. Jakub Chen LYMPH # 1.7 103/ul Normal 1.2-3.8 [facility] Comment on above: Performed By: #### C BC #### [facility] [address] [place] [address] Dr. Jakub Chen Lymphocytes/100 WBC (Bld) 22.1 % Normal 20.5-60.0 [facility] Comment on above: Performed By: #### C BC #### [facility] [address] [place] [address] Dr. Jakub Chen MANUAL DIFF REQ NO Normal [facility] Comment on above: Performed By: #### C BC #### [facility] [address] [place] [address] Dr. Jakub Chen MCH (RBC) [Entitic mass] 27.8 pg Normal 26.7-34.0 [facility] Comment on above: Performed By: #### C BC #### [facility] [address] [place] [address] Dr. Jakub Chen MCHC (RBC) [Mass/Vol] 31.4 g/dL Normal 29.9-35.2 [facility] Comment on above: Performed By: #### C BC #### [facility] [address] [place] [address] Dr. Jakub Chen MCV (RBC) [Entitic vol] 88.5 fL Normal 81.0-99.0 [facility] Comment on above: Performed By: #### C BC #### [facility] [address] [place] [address] Dr. Jakub Chen MONO # 0.6 103/ul Normal 0.3-0.8 [facility] Comment on above: Performed By: #### C BC #### [facility] [address] [place] [address] Dr. Jakub Chen Monocytes/100 WBC (Bld) 7.9 % Normal 1.7-12.0 [facility] Comment on above: Performed By: #### C BC #### [facility] [address] [place] [address] Dr. Jakub Chen NEUT # 5.1 103/ul Normal 1.4-6.5 [facility] Comment on above: Performed By: #### C BC #### [facility] [address] [place] [address] Dr. Jakub Chen Neutrophils/100 WBC (Bld) 65.3 % Normal 43.0-75.0 [facility] Comment on above: Performed By: #### C BC #### [facility] [address] [place] [address] Dr. Jakub Chen Platelet mean volume (Bld) [Entitic vol] 9.1 fL Critically low 9.5-13.5 [facility] Comment on above: Performed By: #### C BC #### [facility] [address] [place] [address] Dr. Jakub Chen PLT 277 103/ul Normal 150-450 [facility] Comment on above: Performed By: #### C BC #### [facility] [address] [place] [address] Dr. Jakub Chen RBC 5.15 106/ul Normal 4.20-5.40 [facility] Comment on above: Performed By: #### C BC #### [facility] [address] [place] [address] Dr. Jakub Chen WBC 7.7 103/ul Normal 4.0-11.0 [facility] Comment on above: Performed By: #### C BC #### [facility] [address] [place] [address] Dr. Jakub Chen GLYCOHEMOGLOBIN A1Con 2022 ADA RECOMMENDATION SEE BELOW Normal [facility] Comment on above: Result Comment: ADA RECOMMENDED LIMIT 4.0 - 6.0 ADA THERAPEUTIC TARGET < 7.0 ACTION SUGGESTED > 7.0 Performed By: #### A 1C #### [facility] [address] [place] [address] Dr. Jakub Chen Glucose [Mass/Vol] 108 mg/dL Normal [facility] Comment on above: Performed By: #### A 1C #### [facility] [address] [place] [address] Dr. Jakub Chen HbA1c (Bld) [Mass fraction] 5.4 % Normal 4.5-6.2 [facility] Comment on above: Performed By: #### A 1C #### [facility] [address] [place] [address] Dr. Jakub Chen LIPID PROFILEon 07-28-2022 CHOL-HDL RATIO NORM SEE BELOW Normal [facility] Comment on above: Result Comment: 3.3 - 4.4 LOW RISK 4.4 - 7.1 AVERAGE RISK 7.1 - 11.0 MODERATE RISK >11.0 HIGH RISK Performed By: #### T SH, CMP, LIPID #### [facility] [address] [address] [address] Jakub Chen Cholesterol [Mass/Vol] 207 mg/dL Critically high <=200 [facility] Comment on above: Performed By: #### T SH, CMP, LIPID #### [facility] [address] [place] [address] Dr. Jakub Chen Cholesterol in HDL [Mass/Vol] 57 mg/dL Normal 40-60 [facility] Comment on above: Performed By: #### T SH, CMP, LIPID #### [facility] [address] [address] [address] Jakub Chen Cholesterol in LDL [Mass/Vol] 129.2 mg/dL Normal [facility] Comment on above: Performed By: #### T SH, CMP, LIPID #### [facility] [address] [address] [address] Jakub Chen Cholesterol.total/Ch olesterol in HDL [Mass ratio] 3.6 {ratio} Normal [facility] Comment on above: Performed By: #### T SH, CMP, LIPID #### [facility] [address] [place] [address] Dr. Jakub Chen HDL NORMAL > or = 60 mg/dl - LOW CARDIOVASCULAR RISK <40 mg/dl - HIGH CARDIOVASCULAR RISK Normal [facility] Comment on above: Performed By: #### T SH, CMP, LIPID #### [facility] [address] [place] [address] Dr. Jakub Chen LDL CALC NORMAL SEE BELOW Normal [facility] Comment on above: Result Comment: <100 mg/dl OPTIMAL 100 - 129 mg/dl NEAR OR ABOVE OPTIMAL 130 - 159 mg/dl BORDERLINE HIGH 160 - 189 mg/dl HIGH >190 mg/dl VERY HIGH Performed By: #### T SH, CMP, LIPID #### [facility] [address] [address] [address] Jakub Chen Triglyceride [Mass/Vol] 104 mg/dL Normal <=150 [facility] Comment on above: Performed By: #### T SH, CMP, LIPID #### [facility] [address] [address] [address] Jakub Chen VLDL CALC 20.8 mg/dL Normal [facility] Comment on above: Performed By: #### T SH, CMP, LIPID #### [facility] [address] [address] [address] Jakub Chen MICROALBUMIN, RAND URon 04- mALB <1.3 Normal <=30.0 [facility] Comment on above: Performed By: #### M ALBR #### [facility] [address] [address] [address] Jakub Chen PROF 14(COMP METB)on 023 Albumin [Mass/Vol] 3.5 g/dL Normal 3.4-5.0 [facility] Comment on above: Performed By: #### T SH, CMP, LIPID #### [facility] [address] [address] [address] Jakub Chen Albumin/Globulin [Mass ratio] 1.0 {ratio} Normal [facility] Comment on above: Performed By: #### T SH, CMP, LIPID #### [facility] [address] [address] [address] Jakub Chen ALP [Catalytic activity/Vol] 126 U/L Critically high 46-116 [facility] Comment on above: Performed By: #### T SH, CMP, LIPID #### [facility] [address] [address] [address] Jakub Chen ALT [Catalytic activity/Vol] 16 U/L Normal 14-59 [facility] Comment on above: Performed By: #### T SH, CMP, LIPID #### [facility] [address] [address] [address] Jakub Chen Anion gap [Moles/Vol] 11.7 mmol/L Normal [facility] Comment on above: Performed By: #### T SH, CMP, LIPID #### [facility] [address] [address] [address] Jakub Chen AST [Catalytic activity/Vol] 14 U/L Critically low 15-37 [facility] Comment on above: Performed By: #### T SH, CMP, LIPID #### [facility] [address] [address] [address] Jakub Chen Bilirubin [Mass/Vol] 0.3 mg/dL Normal 0.2-1.0 [facility] Comment on above: Performed By: #### T SH, CMP, LIPID #### [facility] [address] [place] [address] Dr. Jakub Chen Calcium [Mass/Vol] 8.9 mg/dL Normal 8.5-10.1 [facility] Comment on above: Performed By: #### T SH, CMP, LIPID #### [facility] [address] [place] [address] Dr. Jakub Chen Chloride [Moles/Vol] 108 mmol/L Critically high 98-107 [facility] Comment on above: Performed By: #### T SH, CMP, LIPID #### [facility] [address] [address] [address] Jakub Chen CO2 [Moles/Vol] 28.2 mmol/L Normal 21.0-32.0 [facility] Comment on above: Performed By: #### T SH, CMP, LIPID #### [facility] [address] [place] [address] Dr. Jakub Chen Creatinine [Mass/Vol] 1.01 mg/dL Normal 0.55-1.02 [facility] Comment on above: Performed By: #### T SH, CMP, LIPID #### [facility] [address] [place] [address] Dr. Jakub Chen EGFR-AF PUERTO RICAN >60 Normal >=60 [facility] Comment on above: Performed By: #### T SH, CMP, LIPID #### [facility] [address] [place] [address] Dr. Jakub Chen EGFR-NON AF PUERTO RICAN 56 mL/min/1.73m2 Critically low >=60 [facility] Comment on above: Performed By: #### T SH, CMP, LIPID #### [facility] [address] [address] [address] Jakub Chen Globulin (S) [Mass/Vol] 3.5 g/dL Normal [facility] Comment on above: Performed By: #### T SH, CMP, LIPID #### [facility] [address] [place] [address] Dr. Jakub Chen Glucose [Mass/Vol] 95 mg/dL Normal 74-106 [facility] Comment on above: Performed By: #### T SH CMP, LIPID #### [facility] [address] [place] [address] Dr. Jakub Chen Potassium [Moles/Vol] 4.9 mmol/L Normal 3.5-5.1 [facility] Comment on above: Performed By: #### T SH, CMP, LIPID #### [facility] [address] [place] [address] Dr. Jakub Chen Protein [Mass/Vol] 7.0 g/dL Normal 6.4-8.2 [facility] Comment on above: Performed By: #### T SH, CMP, LIPID #### [facility] [address] [place] [address] Dr. Jakub Chen Sodium [Moles/Vol] 143 mmol/L Normal 136-145 [facility] Comment on above: Performed By: #### T SH, CMP, LIPID #### [facility] [address] [place] [address] Dr. Jakub Chen Urea nitrogen [Mass/Vol] 13.0 mg/dL Normal 7.0-18.0 [facility] Comment on above: Performed By: #### T SH, CMP, LIPID #### [facility] [address] [address] [address] Jakub Chen Urea nitrogen/Creatinine [Mass ratio] 12.9 mg/mg Normal [facility] Comment on above: Performed By: #### T SH, CMP, LIPID #### [facility] [address] [address] [address] Jakub Chen TSHon 07-28-2022 TSH 1.406 uIU/mL Normal 0.358-3.740 [facility] Comment on above: Performed By: #### T SH, CMP, LIPID #### [facility] [address] [place], [place] [address] Dr. Jakub Chen COVID/FLU RT-PCRon SARS-CoV-2 (COVID-19) RNA RUSS+probe Ql (Unsp spec) Negative [facility] Other COVID/FLU RT-PCR Negative [employer] [facility] [employer] Other [facility] 03-13-2022 S. pyogenes Org specific cx Ql (Throat) Negative [facility] Other [facility] [employer] Other Vital Signs Date Time Vital Sign Value Performing Clinician Facility 07-11-2023 11:47-0400 Body height 167.64 cm [facility] 07-11-2023 11:47-0400 Body mass index (BMI) [Ratio] 40.2 kg/m2 [facility] 07-11-2023 11:47-0400 Body weight 113.05 kg [facility] 07-11-2023 11:47-0400 Diastolic blood pressure 111 mm[Hg] [facility] 07-11-2023 11:47-0400 Heart rate 75 /min [facility] 07-11-2023 11:47-0400 Respiratory rate 12 /min [facility] 07-11-2023 11:47-0400 Systolic blood pressure 162 mm[Hg] [facility] 08-03-2022 11:30-0400 Body height 167.64 cm Harjinder Ball Other [facility] Other 08-03-2022 11:30-0400 Body mass index (BMI) [Ratio] 38.22 kg/m2 Harjinder Ball Other [facility] Other 08-03-2022 11:30-0400 Body weight 107.41 kg Harjinder Ball Other [facility] Other 08-03-2022 11:30-0400 Diastolic blood pressure 78 mm[Hg] Harjinder Ball Other [facility] Other 08-03-2022 11:30-0400 Respiratory rate 12 /min Harjinder Ball Other [facility] Other 08-03-2022 11:30-0400 Systolic blood pressure 122 mm[Hg] Harjinder Ball Other [facility] Other 03-13-2022 12:15-0500 Body height 167.64 cm Rosemary Larsonault Other [employer] Other 03-13-2022 12:15-0500 Body mass index (BMI) [Ratio] 36.63 kg/m2 Rosemary Declan Other [facility] Other 03-13-2022 12:15-0500 Body temperature 99.3 [degF] Rosemary Declan Other [facility] Other 03-13-2022 12:15-0500 Body weight 102.97 kg Roseamry Declan Other [facility] Other 03-13-2022 12:15-0500 Diastolic blood pressure 86 mm[Hg] Rosemary Declan Other [facility] Other 03-13-2022 12:15-0500 Respiratory rate 20 /min Rosemary Manriquez Other [facility] [employer] Other 03-13-2022 12:15-0500 SaO2% (BldA) [Mass fraction] 97 % Rosemary Manriquez Other [facility] [employer] Other 03-13-2022 12:15-0500 Systolic blood pressure 132 mm[Hg] Rosemary Manriquez Other [employer] Other Encounters Encounter Date Encounter Type Care Provider Facility Start: 10-26-2023 End: 10-26-2023 ambulatory [facility] Start: 09-06-2023 ambulatory HARJINDER [facility] Start: 08-31-2023 End: 08-31-2023 ambulatory CHARLIE JOEL [facility] Start: 08-30-2023 ambulatory HARJINDER DENNY [facility] Start: 08-15-2023 End: 08-15-2023 ambulatory VISHNU COVINGTON Not Available Start: 08-02-2023 End: 08-03-2023 ambulatory [facility] Start: 07-11-2023 End: 07-11-2023 ambulatory [facility] Work Phone: Start: 07-11-2023 End: 07-11-2023 Patient encounter procedure [facility] Work Phone: Start: 12-28-2022 End: 12-28-2022 ambulatory Harijnder Denny Other [employer] Other Start: 12-28-2022 Telephone encounter Harjinder Denny [facility] Start: 09-13-2022 End: 09-13-2022 ambulatory Harjinder Denny Other [employer] Other Start: 09-13-2022 Telephone encounter Harjinder Denny [facility] Start: 08-25-[address] HARJINDER DENNY Facili ty:[facility] Start: 08-03-2022 End: 08-03-2022 ambulatory Harjinder Denny Other [employer] Other Start: 08-03-2022 Encounter for genera l adult medical examination without abnormal findings Harjinder Denny [facility] Start: 08-03-2022 Periodic preventive med est patient 40-64yrs Harjinder Denny [facility] Start: 08-02-2022 Encounter for genera l adult medical examination without abnormal findings DR HARJINDER DENNY [facility] Start: 07-28-2022 End: 07-29-[address] HARJINDER DENNY Facility:[facility] Start: 07-28-2022 End: 07-29-2022 Encounter for general adult medical examination without abnormal findings DR HARJINDER DENNY Facility:[facility] Start: 07-16-2022 End: 07-16-2022 ambulatory Harjinder Denny Other [employer] Other Start: 07-16-2022 Encounter for genera l adult medical examination without abnormal findings Harjinder Denny [facility] Start: 07-16-2022 Telephone encounter Harjinder GOSS [facility] Start: 06-21-2022 End: 06-21-2022 ambulatory Harjinder Denny Other [employer] Other Start: 06-21-2022 Telephone encounter Harjinder GOSS [facility] Start: 04-06-2022 Gynecological examination abnormal Harjinder Denny Other [employer] Other Start: 04-06-2022 Gynecological examination normal Harjinder Denny Other [employer] Other Start: 03-13-2022 End: 03-13-2022 ambulatory Rosemary Manriquez Other [employer] Other Start: 03-13-2022 Office outpatient ne w 20 minutes Rosemary Manriquez [facility] Start: 02-04-2020 Adult health examination Reinaldo Denny Other [employer] Other Start: 02-10-2018 End: 02-11-2018 Patient encounter procedure DEFAULT PHYSICIAN Facility:[facility] Procedures Date Procedure Procedure Detail Performing Clinician Depression screening Polina Denny Other Screening for malign ant neoplasm of breast Harjinder Denny Other Screening for malign ant neoplasm of skin Harjinder Denny Other Plan of Treatment Date Care Activity Detail Author Comprehensive metabo lic 2000 panel - Serum or Plasma [facility] Immunizations Immunization Date Immunization Notes Care Provider Fa cility 01-30-2021 COVID-19 Vaccine Mod ijeoma - Documentation Purposes Only Harjinder Denny Other [facility] 05-15-2020 COVID-19 Vaccine Mod ijeoma - Documentation Purposes Only Harjinder Denny Other [facility] 04-17-2020 COVID-19 Vaccine Mod ijeoma - Documentation Purposes Only Harjinder Denny Other [facility] Payers Date Payer Category Payer [employer] [id number] 1965 Unknown [id number] 1965 Unknown [id number] 1965 Unknown [id number] 1965 Unknown [id number] 1965 Unknown [id number] 1965 Unknown [id number] 1965 Unknown [id number] Unknown Unknown [id number] 2. [id number] Unknown MMO-DO NOT USE [id number] Social History Date Type Detail Facility Unknown if ever smoked [employer] Other Sex Assigned At Sex Assigned At Bir th [employer] Other Start: 1965 Sex Assigned At Female F [facility] Clinical Notes 03-13-2022 to 10-26-2023 Note Date & Type Note Facility 10-26-2023 Note Cardiovascular Medic [facility] SUBJECTIVE Chief Complaint Patient presents with Follow-up 3 month Follow up - go over echo results Josephine Salas is a 58 y.o. female here for follow-up. 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 Patient here c/o [...] not included)... [facility] 08-02-2023 Note Cardiovascular Medic [facility] SUBJECTIVE Chief Complaint Patient presents with Hypertension Josephine Salas is a 58 y.o. female here for follow-up. 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 Patient here c/o [...] not included)... [facility] 08-02-2023 Note Patient here c/o hyp ertension. [...] are negative. [facility] 09-13-2022 Evaluation note Encounter Date Diagnosis Assessment Notes Sep, Mild episode of recurrent major depressive disorder (ICD-10 - F33.0) [facility] Other 04-25-2023 Evaluation note* Encounter Date Diagnosis [...] use, the patient reduces the risk for RI, CVA, HTN, cardiac dysrhythmias and sudden cardiac [...] mammogram for breast cancer (ICD-10 - Z12.31) [facility] Other 04-07-2023 Evaluation note* Encounter Date Diagnosis Assessment Notes Treatment Notes Treatment Clinical Notes Jul, Wellness examination (ICD-10 - Z00.00) [facility] Other 12-03-2022 Evaluation note* Encounter Date Diagnosis [...] care provider if no improvement of symptoms. [employer] Other Evaluation noteNo InformationNort [employer] Other Evaluation note* Diagnosis Onset Date Resolution Status Epigastric abdominal pain ac laila Hypertension acute S/P cholecystectomy noneacti ve [facility] Work Phone: History general Narrative - Reported* Type Description Date Medical History HYPERTENSION Medical History DEPRESSION Surgical History GALL [facility] Surgical History APPENDIX Surgical History LAZY EYE SURGERY Surgical History TONSILS Hospitalization History SEE ABOVE [employer] Other History general Narrative - Reported* Type [...] Surgical History COLONOSCOPY Hospitalization History SEE ABOVE [facility] Other Summary Purpose Family History No Family [...] and content) DATE CREATED AUTHOR 03/19/2018 [facility] DATE CREATED AUTHOR AUTHOR'S ORGANIZ ATION 08/25/2022 [facility] DATE CREATED AUTHOR AUTHOR'S ORGANIZ ATION 08/16/2023 [facility] EPIC DATE CREATED AUTHOR AUTHOR'S ORGANIZ ATION 09/06/2023 [facility] DATE CREATED AUTHOR AUTHOR'S ORGANIZ ATION 10/30/2023 [facility] REASON FOR VISIT (unrecogniz ed section and [...] BE BASED ON THE PRIMARY CLINICAL RECORDS. [facility] [employer] [facility] provides no warranty or guarantee of the accuracy or completeness of information in this document.
[2023-12-22 09:38] LABS: Basophils Absolute Auto 0.1 10^3/uL (0.0-0.1); Basophils Percent Auto 0.8 % (0.2-2.0); Eosinophils Absolute Auto 0.3 10^3/uL (0.0-0.7); Eosinophils Percent Auto 3.5 % (0.9-7.0); Hematocrit 43.1 % (36.0-48.0); Hemoglobin 13.7 g/dL (12.0-16.0); Immature Granulocytes Abs Auto 0.02 10^3/uL (0.00-0.03); Immature Granulocytes Pct Auto 0.3 % (0.0-0.5); Lymphocytes Absolute Auto 2.1 10^3/uL (1.2-3.8); Lymphocytes Percent Auto 26.4 % (20.5-60.0); Mean Corpuscular HGB Conc 31.8 g/dL (29.9-35.2); Mean Corpuscular Hemoglobin 28.2 pg (26.7-34.0); Mean Corpuscular Volume 88.7 fL (81.0-99.0); Mean Platelet Volume 9.7 fL (9.5-13.5); Monocytes Absolute Auto 0.7 10^3/uL (0.3-0.8); Monocytes Percent Auto 8.4 % (1.7-12.0); Neutrophils Absolute Auto 4.8 10^3/uL (1.4-6.5); Neutrophils Percent Auto 60.6 % (43.0-75.0); Platelet Count 266 10^3/uL (150-450); Red Blood Count 4.86 10^6/uL (4.20-5.40); Red Cell Distribution Width 13.5 % (11.0-15.0); White Blood Count 7.9 10^3/uL (4.0-11.0)
[2023-12-22 10:14] LABS: Alanine Aminotransferase 12 U/L (14-59); Albumin Globulin Ratio 1.1; Albumin Level 3.5 g/dL (3.4-5.0); Alkaline Phosphatase 108 U/L (46-116); Anion Gap 14.6; Aspartate Amino Transferase 14 U/L (15-37); BUN Creatinine Ratio 16.4; Bilirubin Total 0.5 mg/dL (0.2-1.0); Calcium 8.9 mg/dL (8.5-10.1); Carbon Dioxide 25.5 mmol/L (21.0-32.0); Chloride 105 mmol/L (98-107); Chol HDL Ratio 3.3; Cholesterol 177 mg/dL (<=200); Estimated GFR (African America >60 (>=60); Estimated GFR (Non-African Ame 51 (>=60); Globulin 3.1 g/dL; Glucose 84 mg/dL (74-106); HDL Cholesterol 54 mg/dL (40-60); LDL Cholesterol Calculated 107.8 mg/dL; Potassium 4.1 mmol/L (3.5-5.1); Sodium 141 mmol/L (136-145); Thyroid Stimulating Hormone 1.174 uIU/mL (0.358-3.740); Total Protein 6.6 g/dL (6.4-8.2); Triglycerides 76 mg/dL (<=150); VLDL CHOLESTEROL 15.2 mg/dL
[2023-12-22 10:20] LABS: Estimated Average Glucose 103 mg/dL; Glycohemoglobin A1C 5.2 % (4.5-6.2)
== END 2023-12-22 09:26 | disposition home or self-care (01) ==
LOC: LAB 09:26
PROVIDERS: PCP Internal Medicine; Visit Provider Internal Medicine
DX: Z00.00 Encounter for general adult medical examination without abnormal findings (principal)
CPT/HCPCS: 36415; 80053; 80061; 83036; 84443; 85025

== ENCOUNTER 2024-01-13 06:52 | Outpatient (OUT) | payer BC, SELFPAY ==
--- NOTE | 2024-01-13 | NM_ITS ---
Patient Name: MAN PATTERSON MR#: [id number] : 1965 Exam Date: 01/13/2024 Ordering Doctor: GLADIS VILLASEÑOR CNP RADIOLOGY REPORT PROCEDURE: NM ROHAN PERF SPECT REST STR COMPARISON: None. INDICATIONS: DYSPNEA ON EXERTION TECHNIQUE: Exam Description: Stress/Rest one day protocol gated SPECT Rest Imagin.5 mCi Tc-99m Cardiolite IV on 01/13/2024 Stress Imaging 28.7 mCi Tc-99m Cardiolite IV on 01/13/2024 Exercise Protocol: 0.4 mg Lexiscan given IV Heart Rate (bpm): Rest: 51 Max: 70 PMHR: 43 Blood Pressure: Rest: 138/82 Max: 138/82 Symptoms: Rest and peak stress ECG findings were pending and the exercise portion of the study was pending per attending physician Dr. HOGUE . For more details please see separate cardiac stress test report. FINDINGS: QUALITY OF STUDY: Excellent. PERFUSION DEFECT: LOCATION: Mid-anterior. SIZE: Small (1-2 segments). SEVERITY: Mild. TYPE: Persistent. WALL MOTION: Normal. LV SIZE: Normal. 105 mL. TID / TCD: None; 0.9 LVEF: Normal. Calculated EF 76%. SUMMARY: Myocardial perfusion imaging study has ABNORMAL findings. CONCLUSION: 1. No acute or reversible ischemia. 2. Small questionable fixed perfusion defect involving the mid anterior/anterior-septal wall versus artifact 3. Normal wall motion and ejection fraction. Dictated by: Armani Singer M.D. on 01/13/2024 at 12:34 Approved by: Armani Singer M.D. on 01/13/2024 at 12:39
--- NOTE | 2024-01-13 | PCN_ITS ---
CARDIAC STRESS TEST Requesting Physician: Dr. Calloway Procedure Date: 01/13/2024 LEXISCAN STRESS TEST INDICATION: Dyspnea on exertion. Baseline heart rate 61 beats per minute, blood pressure 158/82. Peak heart rate 70 beats per minute, representing 43% of age predicted maximum heart rate; peak blood pressure 158/82 mm/Hg. Lexiscan 0.4 mg IV was injected and the patient was monitored. Patient did not experience any chest pain or shortness of breath during the test. Baseline EKG showed sinus bradycardia, heart rate 66 beats per minute, ST-T changes in leads V1-V3. EKG did not show any significant changes throughout the test. Rare isolated PVCs were noted. CONCLUSION/COMMENT: 1. Negative Lexiscan EKG stress test for ischemia. 2. Nuclear myocardial perfusion images will be reported separately. MTDD
--- OUTSIDE RECORDS SUMMARY | 2024-01-13 06:55 | XMS_ITS | CCD ---
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 Role Phone PHYSICIAN, DEFAULT Unavailable Unavailable PHYSICIAN, DEFAULT Unavailable Unavailable Rosemary Manriquez Unavailable Harjinder Denny Unavailable QUENTIN, DR GREENWOOD Admitting Unavailable BALL, DR GREENWOOD Attending Unavailable BALL, DR GREENWOOD Consulting Unavailable QUENTIN, DR GREENWOOD Primary Care Unavailable QUENTIN, DR GREENWOOD Primary Care Unavailable QUENTIN, DR GREENWOOD Admitting Unavailable BALL, DR GREENWOOD Attending Unavailable BALL, DR GREENWOOD Consulting Unavailable VISHNU COVINGTON Attending Unavailable HARJINDER DENNY Referring Unavailable HARJINDER DENNY Primary Care Unavailable CHARLIE JOEL Attending Unavailable HARJINDER DENNY Referring Unavailable HARJINDER DENNY Primary Care Unavailable GLADIS VILLASEÑOR Attending Unavailable GLADIS VILLASEÑOR Attending Unavailable Allergies Allergy Classification Reported Allergen(s) Allergy Type Date of Onset Reaction(s) Facility (1 source) Desonide Drug Allergy 7 [facility] Repository (1 source) patient allergy list reviewed by nurse or physicia Propensity to adverse reactions 9 Comment:Done POINT 3 Basketball Other (1 source) Allergies Reconciled Propensity to adverse reactions Unknown POINT 3 Basketball Other (2 sources) BEE VENOM PROTEIN (HONEY BEE); Translations: [BEE VENOM PROTEIN (HONEY BEE)] Propensity to adverse reactions to drug (disorder) 4 [facility] Repository Medications Current Medications Medication Drug Class(es) Dates Sig (Normalized) Sig (Original) [id number] 200 actuat albuterol 0.09 mg/actuat metered dose [...] needed Inhalation every 4 hrs Mar, Active amLODIPine 5 mg oral tablet (2 sources) Dihydropyridine Calcium Channel Kim Start: 11-11-2023 take 1 tablet by mouth once daily Amlodipine Active 0 .ROUTE .COMPLEX November 11, 2023 7:06am TAKE 1 TABLET BY MOUTH ONCE EVERYDAY Start: 07-19-2023 End: 11-11-2023 take 5 mg by mouth once daily Amlodipine Discontinued 5 MG PO Daily July 19, 2023 12:00am November 11, 2023 7:06am amoxicillin 875 mg oral tablet (3 sources) Penicillin-class Antibacterial Start: 03-13-2022 take 1 tablet by mouth every twelve hours Amoxicillin 875 MG 1 tablet Orally every 12 hrs for 7 days Mar, Active aspirin 81 mg delayed release oral tablet (8 sources) Platelet Aggregation Inhibitor, Nonsteroidal Anti-inflammatory Drug Start: 07-11-2023 take 81 mg by mouth once daily Aspirin Active 81 MG PO Daily July 11, 2023 12:00am take 1 tablet by mouth once yang y Aspirin 81 81 MG 1 tablet Orally Once a day Active buPROPion (13 sources) Aminoketone Start: 11-30-2023 take 1 tablet by mouth once daily Bupropion Hcl Active 0 .ROUTE .COMPLEX November 30, 2023 5:42pm TAKE 1 TABLET BY MOUTH EVERY DAY Start: 09-27-2023 End: 11-30-2023 take 1 tablet by mouth once daily Bupropion Hcl Discontinued 0 .ROUTE .COMPLEX September 27, 2023 11:22am November 30, 2023 5:42pm TAKE 1 TABLET BY MOUTH EVERY DAY Start: 07-11-2023 End: 09-27-2023 take 150 mg by mouth once daily in the morning Bupropion Hcl Discontinued 150 MG PO Every morning July 11, 2023 12:00am September 27, 2023 11:23am take 1 tablet by la nena th [...] Mar, Active escitalopram 20 mg oral tablet (9 sources) Serotonin Reuptake Inhibitor Start: 12-02-2023 take 1 tablet by mouth once daily Escitalopram Oxalate Active 0 .ROUTE .COMPLEX 90 December 02, 2023 10:17am TAKE 1 TABLET BY MOUTH EVERY DAY FOR 90 DAYS Start: 07-11-2023 End: 12-02-2023 take 20 mg by mouth once daily Escitalopram Oxalate Di scontinued 20 MG PO Daily July 11, 2023 12:00am December 02, 2023 10:19am take 1 tablet by la nena th every twenty-four hours Escitalopram Oxalate 20 MG 1 tablet Orally Once a day for 90 days Active lisinopril 40 mg oral tablet (8 sources) Angiotensin Converting Enzyme Inhibitor Start: 07-11-2023 [...] a day for 6 days Mar, Active nebivolol 5 mg oral tablet (1 source) Start: 12-30-2023 take 1 tablet by mouth once daily Nebivolol (Bystolic) 5 mg tablet Active 5 MG PO Daily December 30, 2023 12:00am Completed/Discontinued Medications Medication Drug Class(es) Dates Sig (Normalized) Sig (Original) metoprolol tartrate 37.5 mg oral tablet (8 sources) beta-Adrenergic Kim Start: 07-11-2023 End: 12-30-2023 take 37.5 mg by mouth once daily Metoprolol Tartrate Discontinued 37.5 MG PO Daily July 11, 2023 12:00am December 30, 2023 10:43am Toprol XL 25 MG 1 1/2 tablet Orally Once a day Active Problems Active Problems Problem Classification Problem Date Documented Da te Episodic/Chronic Abdominal hernia (2 sources) Hernia of abdominal cavity; Translations: [Hernia of anterior abdominal wall] Onset: 4 12-28-2023 Episodic Abdominal pain (3 sources) Epigastric pain; Translations: [Epigastric pain] 07-11-2023 Episodic Acute bronchitis (1 source) Acute bronchitis; Translations: [Acute bronchitis due to other specified organisms] Episodic Anxiety disorders (1 source) Posttraumatic stress disorder; Translations: [Post-traumatic stress disorder, unspecified] Chronic Asthma (1 source) Acute exacerbation of moderate persistent asthma; Translations: [Moderate persistent asthma with (acute) exacerbation] Chronic Cardiac dysrhythmias (12 sources) Ventricular bigeminy; Translations: [Other specified cardiac arrhythmias] Onset: 9 Chronic Cardiac dysrhythmias (2 sources) Palpitations; Translations: [Palpitations] Onset: 4 Episodic Chronic obstructive pulmonary disease and bronchiectasis (1 source) Bronchitis, not specified as acute or chronic Episodic Essential hypertension (11 sources) Essential hypertension; Translations: [Essential (primary) hypertension] Onset: 4 Chronic Headache; including migraine (2 sources) Migraine with aura; Translations: [Migraine with aura, without mention of intractable migraine without mention of status migrainosus] Onset: 9 Chronic Inflammation; infection of eye (except that caused by tuberculosis or sexually transmitteddisease) (1 source) Unspecified acute conjunctivitis, bilateral Episodic Mood disorders (9 sources) Recurrent major depressive episodes, mild ; [...] Episodic Other nutritional; endocrine; and metabolic disorders (2 sources) Obesity; Translations: [Obesity, unspecified] Resolved: 1 12-30-2023 Chronic Other nutritional; endocrine; and metabolic disorders [...] index 36.0-36.9, adult] Onset: 9 Chronic Other nutritional; endocrine; and metabolic disorders (1 source) Obesity, unspecified; Translations: [Obesity, unspecified] 12-30-2023 Chronic Other screening for suspected conditions (not [...] Test Name Value Interpretation Reference Range Facility Basophils Auto (Bld) [#/Vol] on 12-22-2023 Basophils (Bld) [#/Vol] 0.1 10 3/uL 0.0-0.1 [facility] Basophils/100 WBC Auto (Bld) on 12-22-2023 Basophils/100 WBC (Bld) 0.8 % 0.2-2.0 [facility] Cholesterol in LDL Calc [Mas s/Vol]on 12-22-2023 Cholesterol in LDL [Mass/Vol] 107.8 mg/dL [facility] Comment on above: <100 mg/dl [id number] 0-129 mg/dl NEAR OR ABOVE [id number] mg/dl BORDERLINE [id number] mg/dl HIGH>190 mg/dl VERY HIGH Cholesterol in VLDL Calc [Ma ss/Vol]on 12-22-2023 Cholesterol in VLDL [Mass/Vol] 15.2 mg/dL [facility] Eosinophils/100 WBC Auto (Bl d)on 12-22-2023 Eosinophils/100 WBC (Bld) 3.5 % 0.9-7.0 [facility] Erythrocyte distribution wid th Auto (RBC) [Ratio]on 12-22-2023 Erythrocyte distribution width (RBC) [Ratio] 13.5 % 11.0-15.0 [facility] Estimated glomerular filtrat ion rate (GFR) non- Americanon 12-22-2023 GFR/1.73 sq M.predicted among non-blacks MDRD (S/P/Bld) [Vol rate/Area] 51 mL/min/{1.73_m2} Low >=60 [facility] Globulin Calc (S) [Mass/Vol] on 12-22-2023 Globulin (S) [Mass/Vol] 3.1 g/dL [facility] Glucose mean value [Mass/vol ume] in Blood Estimated from glycated hemoglobinon 12-22-2023 Average glucose Estimated from glycated hemoglobin (Bld) [Mass/Vol] 103 mg/dL [facility] Hematocrit Auto (Bld) [Volum e fraction]on 12-22-2023 Hematocrit (Bld) [Volume fraction] 43.1 % 36.0-48.0 [facility] Hemoglobin [Mass/volume] in Bloodon 12-22-2023 Hemoglobin (Bld) [Mass/Vol] 13.7 g/dL 12.0-16.0 [facility] Laboratory - Chemistry and C hemistry - challengeon 12-22-2023 Albumin [Mass/Vol] 3.5 g/dL 3.4-5.0 [facility] ALP [Catalytic activity/Vol] 108 U/L 46-116 [facility] ALT [Catalytic activity/Vol] 12 U/L Low 14-59 [facility] AST [Catalytic activity/Vol] 14 U/L Low 15-37 [facility] Bilirubin [Mass/Vol] 0.5 mg/dL 0.2-1.0 [facility] Calcium [Mass/Vol] 8.9 mg/dL 8.5-10.1 [facility] Chloride [Moles/Vol] 105 mmol/L 98-107 [facility] Cholesterol [Mass/Vol] 177 mg/dL <=200 [facility] Cholesterol in HDL [Mass/Vol] 54 mg/dL 40-60 [facility] Comment on above: > or =60 mg/dl - LOW CARDIOVASCULAR RISK<40 mg/dl - HIGH CARDIOVASCULAR RISK CO2 [Moles/Vol] 25.5 mmol/L 21.0-32.0 [facility] Creatinine [Mass/Vol] 1.10 mg/dL High 0.55-1.02 [facility] GFR/1.73 sq M.predicted MDRD (S/P/Bld) [Vol rate/Area] mL/min/{1.73_m2} >=60 [facility] Glucose [Mass/Vol] 84 mg/dL 74-106 [facility] Potassium [Moles/Vol] 4.1 mmol/L 3.5-5.1 [facility] Protein [Mass/Vol] 6.6 g/dL 6.4-8.2 [facility] Sodium [Moles/Vol] 141 mmol/L 136-145 [facility] Triglyceride [Mass/Vol] 76 mg/dL <=150 [facility] TSH Qn 1.174 m[IU]/L 0.358-3.740 [facility] Urea nitrogen [Mass/Vol] 18.0 mg/dL 7.0-18.0 [facility] Urea nitrogen/Creatinine [Mass ratio] 16.4 mg/mg [facility] Laboratory - Hematology and Cell countson 12-22-2023 HbA1c (Bld) [Mass fraction] 5.2 % 4.5-6.2 [facility] Comment on above: ADA RECOMMENDED LIMI T 4.0 - 6.0ADA THERAPEUTIC TARGET < 7.0ACTION SUGGESTED> 7.0 Immature granulocytes/100 WBC (Bld) 0.3 % 0.0-0.5 [facility] Leukocytes [#/volume] correc gaudencio for nucleated erythrocytes in Blood by Automated counon 12-22-2023 WBC corrected for nucl RBC Auto (Bld) [#/Vol] 7.9 10 3/uL 4.0-11.0 [facility] Lymphocytes Auto (Bld) [#/Vo l]on 12-22-2023 Lymphocytes (Bld) [#/Vol] 2.1 10 3/uL 1.2-3.8 [facility] Lymphocytes/100 WBC Auto (Bl d)on 12-22-2023 Lymphocytes/100 WBC (Bld) 26.4 % 20.5-60.0 [facility] MCH Auto (RBC) [Entitic mass ]on 12-22-2023 MCH (RBC) [Entitic mass] 28.2 pg 26.7-34.0 [facility] MCHC Auto (RBC) [Mass/Vol]on 12-22-2023 MCHC (RBC) [Mass/Vol] 31.8 g/dL 29.9-35.2 [facility] MCV Auto (RBC) [Entitic vol] on 12-22-2023 MCV (RBC) [Entitic vol] 88.7 fL 81.0-99.0 [facility] Monocytes Auto (Bld) [#/Vol] on 12-22-2023 Monocytes (Bld) [#/Vol] 0.7 10 3/uL 0.3-0.8 [facility] Monocytes/100 WBC Auto (Bld) on 12-22-2023 Monocytes/100 WBC (Bld) 8.4 % 1.7-12.0 [facility] Neutrophils Auto (Bld) [#/Vo l]on 12-22-2023 Neutrophils (Bld) [#/Vol] 4.8 10 3/uL 1.4-6.5 [facility] Neutrophils/100 WBC Auto (Bl d)on 12-22-2023 Neutrophils/100 WBC (Bld) 60.6 % 43.0-75.0 [facility] No Panel Informationon 12-21 Eosinophils # (Auto) 0.3 10 3/uL 0.0-0.7 [facility] Immature Granulocyte # (Auto) 0.02 10 3/uL 0.00-0.03 [facility] Platelet mean volume Auto (B ld) [Entitic vol]on 12-22-2023 Platelet mean volume (Bld) [Entitic vol] 9.7 fL 9.5-13.5 [facility] Platelets Auto (Bld) [#/Vol] on 12-22-2023 Platelets (Bld) [#/Vol] 266 10 3/uL 150-450 [facility] RBC Auto (Bld) [#/Vol]on RBC (Bld) [#/Vol] 4.86 10 6/uL 4.20-5.40 [facility] Serum or plasma albumin/glob ulin mass ratioon 12-22-2023 Albumin/Globulin [Mass ratio] 1.1 {ratio} [facility] Serum or plasma anion gap de terminationon 12-22-2023 Anion gap [Moles/Vol] 14.6 mmol/L [facility] Serum or plasma total choles terol/high density lipoprotein (HDL) cholesterol mass jenn 12-22-2023 Cholesterol.total/Ch olesterol in HDL [Mass ratio] 3.3 {ratio} [facility] Comment on above: 3.3 - 4.4 LOW RISK4. 4 - 7.1 AVERAGE RISK7.1 - 11.0 MODERATE RISK>11.0 HIGH RISK Office Visiton 10-26-2023 Follow-up visit [id number] Flaco Salasdimitris Mason 1965 F Date Provider Department Center 10/26/2023 GLADIS GOVEA Family History Problem Relation Age of Onset Diabetes Mother Hypertension Father Hyperlipidemia Father Cancer Father Comments: CLL Family Status - Relation Status Age at Mother Father Level of Service:49463 [place] OFFICE/OUTPATIENT ESTABLISHED MOD MDM 30 MIN Reason for Visit and Comments: Follow-up [214363] - 3 month Follow up - go over echo results Normal [facility] Orders Onlyon 09-15-2023 Orders Only [id number] MaritzaJosephine Mason 1965 F Date Provider Department Center 09/15/2023 [facility] No family history on file Normal [facility] Office Visiton 08-02-2023 Follow-up visit [id number] MaritzaJosephine Mason 1965 F Date Provider Department Center 08/02/2023 GLADIS GOVEA [facility] No family history on file Level of Service:00670 [place] OFFICE/OUTPATIENT ESTABLISHED MOD MDM 30 MIN Reason for Visit and Comments: Hypertension [[id number]] Normal [facility] CBC AUTO DIFFon 07-28-2022 BASO # 0.1 103/ul Normal 0.0-0.1 [facility] Comment on above: Performed By: #### C BC #### [facility] [address] [place] [address] Dr. Jakub Chen Basophils/100 WBC (Bld) 0.6 % Normal 0.2-2.0 [facility] Comment on above: Performed By: #### C BC #### [facility] [address] [place] [address] Dr. Jakub Chen EO # 0.3 103/ul Normal 0.0-0.7 [facility] Comment on above: Performed By: #### C BC #### [facility] [address] [place] [address] Dr. Jakub Chen Eosinophils/100 WBC (Bld) 3.8 % Normal 0.9-7.0 [facility] Comment on above: Performed By: #### C BC #### [facility] [address] [place] [address] Dr. Jakub Chen Erythrocyte distribution width (RBC) [Ratio] 13.5 % Normal 11.0-15.0 [facility] Comment on above: Performed By: #### C BC #### [facility] [address] [place] [address] Dr. Jakub Chen Hematocrit (Bld) [Volume fraction] 45.6 % Normal 36.0-48.0 [facility] Comment on above: Performed By: #### C BC #### [facility] [address] [place] [address] Dr. Jakub Chen Hemoglobin (Bld) [Mass/Vol] 14.3 g/dL Normal 12.0-16.0 [facility] Comment on above: Performed By: #### C BC #### [facility] [address] [place] [address] Dr. Jakub Chen IG # 0.02 10e3/ul Normal 0.00-0.03 [facility] Comment on above: Performed By: #### C BC #### [facility] [address] [place] [address] Dr. Jakub Chen IG % 0.3 % Normal 0.0-0.5 [facility] Comment on above: Performed By: #### C BC #### [facility] [address] [place] [address] Dr. Jakub Chen LYMPH # 1.7 103/ul Normal 1.2-3.8 [facility] Comment on above: Performed By: #### C BC #### [facility] [address] [place] [address] Dr. Jakub Chen Lymphocytes/100 WBC (Bld) 22.1 % Normal 20.5-60.0 [facility] Comment on above: Performed By: #### C BC #### [facility] [address] [place] [address] Dr. Jakub Chen MANUAL DIFF REQ NO Normal [facility] Comment on above: Performed By: #### C BC #### [facility] [address] [address] [address] Jakub Chen MCH (RBC) [Entitic mass] 27.8 pg Normal 26.7-34.0 [facility] Comment on above: Performed By: #### C BC #### [facility] [address] [address] [address] Jakub Chen MCHC (RBC) [Mass/Vol] 31.4 g/dL Normal 29.9-35.2 [facility] Comment on above: Performed By: #### C BC #### [facility] [address] [place] [address] Dr. Jakub Chen MCV (RBC) [Entitic vol] 88.5 fL Normal 81.0-99.0 [facility] Comment on above: Performed By: #### C BC #### [facility] [address] [place] [address] Dr. Jakub Chen MONO # 0.6 103/ul Normal 0.3-0.8 [facility] Comment on above: Performed By: #### C BC #### [facility] [address] [place] [address] Dr. Jakub Chen Monocytes/100 WBC (Bld) 7.9 % Normal 1.7-12.0 [facility] Comment on above: Performed By: #### C BC #### [facility] [address] [place] [address] Dr. Jakub Chen NEUT # 5.1 103/ul Normal 1.4-6.5 [facility] Comment on above: Performed By: #### C BC #### [facility] [address] [place] [address] Dr. Jakub Chen Neutrophils/100 WBC (Bld) 65.3 % Normal 43.0-75.0 [facility] Comment on above: Performed By: #### C BC #### [facility] [address] [place] [address] Dr. Jakub Chen Platelet mean volume (Bld) [Entitic vol] 9.1 fL Critically low 9.5-13.5 [facility] Comment on above: Performed By: #### C BC #### [facility] [address] [address] [address] Jakub Chen PLT 277 103/ul Normal 150-450 [facility] Comment on above: Performed By: #### C BC #### [facility] [address] [place] [address] Dr. Jakub Chen RBC 5.15 106/ul Normal 4.20-5.40 [facility] Comment on above: Performed By: #### C BC #### [facility] [address] [address] [address] Jakub Chen WBC 7.7 103/ul Normal 4.0-11.0 [facility] Comment on above: Performed By: #### C BC #### [facility] [address] [place] [address] Dr. Jakub Chen GLYCOHEMOGLOBIN A1Con 2022 ADA RECOMMENDATION SEE BELOW Normal [facility] Comment on above: Result Comment: ADA RECOMMENDED LIMIT 4.0 - 6.0 ADA THERAPEUTIC TARGET < 7.0 ACTION SUGGESTED > 7.0 Performed By: #### A 1C #### [facility] [address] [place] [address] Dr. Jakub Chen Glucose [Mass/Vol] 108 mg/dL Normal [facility] Comment on above: Performed By: #### A 1C #### [facility] [address] [place] [address] Dr. Jakub Chen HbA1c (Bld) [Mass fraction] 5.4 % Normal 4.5-6.2 [facility] Comment on above: Performed By: #### A 1C #### [facility] [address] [place] [address] Dr. Jakub Chen LIPID PROFILEon 07-28-2022 CHOL-HDL RATIO NORM SEE BELOW Normal [facility] Comment on above: Result Comment: 3.3 - 4.4 LOW RISK 4.4 - 7.1 AVERAGE RISK 7.1 - 11.0 MODERATE RISK >11.0 HIGH RISK Performed By: #### T SH, CMP, LIPID #### [facility] [address] [address] [address] Jakub Chen Cholesterol [Mass/Vol] 207 mg/dL Critically high <=200 [facility] Comment on above: Performed By: #### T SH, CMP, LIPID #### [facility] [address] [address] [address] Jakub Chen Cholesterol in HDL [Mass/Vol] 57 mg/dL Normal 40-60 [facility] Comment on above: Performed By: #### T SH, CMP, LIPID #### [facility] [address] [address] [address] Jakub Chen Cholesterol in LDL [Mass/Vol] 129.2 mg/dL Normal [facility] Comment on above: Performed By: #### T SH, CMP, LIPID #### [facility] [address] [address] [address] Jakub Chen Cholesterol.total/Ch olesterol in HDL [Mass ratio] 3.6 {ratio} Normal [facility] Comment on above: Performed By: #### T SH, CMP, LIPID #### [facility] [address] [address] [address] Jakub Chen HDL NORMAL > or = 60 mg/dl - LOW CARDIOVASCULAR RISK <40 mg/dl - HIGH CARDIOVASCULAR RISK Normal [facility] Comment on above: Performed By: #### T SH, CMP, LIPID #### [facility] [address] [address] [address] Jakub Chen LDL CALC NORMAL SEE BELOW Normal [facility] Comment on above: Result Comment: <100 mg/dl OPTIMAL 100 - 129 mg/dl NEAR OR ABOVE OPTIMAL 130 - 159 mg/dl BORDERLINE HIGH 160 - 189 mg/dl HIGH >190 mg/dl VERY HIGH Performed By: #### T SH, CMP, LIPID #### [facility] [address] [address] [address] Jakub Chen Triglyceride [Mass/Vol] 104 mg/dL Normal <=150 [facility] Comment on above: Performed By: #### T SH, CMP, LIPID #### [facility] [address] [address] [address] Jakub Chen VLDL CALC 20.8 mg/dL Normal [facility] Comment on above: Performed By: #### T SH, CMP, LIPID #### [facility] [address] [place] [address] Dr. Jakub Chen MICROALBUMIN, RAND URon - mALB <1.3 Normal <=30.0 [facility] Comment on above: Performed By: #### M ALBR #### [facility] [address] [address] [address] Jakub Chen PROF 14(COMP METB)on 023 Albumin [Mass/Vol] 3.5 g/dL Normal 3.4-5.[address] [facility] Comment on above: Performed By: #### T SH, CMP, LIPID #### [facility] [address] [place] [address] Dr. Jakub Chen Albumin/Globulin [Mass ratio] 1.0 {ratio} Normal [facility] Comment on above: Performed By: #### T SH, CMP, LIPID #### [facility] [address] [place] [address] Dr. Jakub Chen ALP [Catalytic activity/Vol] 126 U/L Critically high 46-116 [facility] Comment on above: Performed By: #### T SH, CMP, LIPID #### [facility] [address] [place] [address] Dr. Jakub Chen ALT [Catalytic activity/Vol] 16 U/L Normal 14-59 [facility] Comment on above: Performed By: #### T SH, CMP, LIPID #### [facility] [address] [place] [address] Dr. Jakub Chen Anion gap [Moles/Vol] 11.7 mmol/L Normal [facility] Comment on above: Performed By: #### T SH, CMP, LIPID #### [facility] [address] [place] [address] Dr. Jakub Chen AST [Catalytic activity/Vol] 14 U/L Critically low 15-37 [facility] Comment on above: Performed By: #### T SH, CMP, LIPID #### [facility] [address] [address] [address] Jakub Chen Bilirubin [Mass/Vol] 0.3 mg/dL Normal 0.2-1.0 [facility] Comment on above: Performed By: #### T SH, CMP, LIPID #### [facility] [address] [address] [address] Jakub Chen Calcium [Mass/Vol] 8.9 mg/dL Normal 8.5-10.[address] [facility] Comment on above: Performed By: #### T SH, CMP, LIPID #### [facility] [address] [address] [address] Jakub Chen Chloride [Moles/Vol] 108 mmol/L Critically high 98-107 [facility] Comment on above: Performed By: #### T SH, CMP, LIPID #### [facility] [address] [place] [address] Dr. Jakub Chen CO2 [Moles/Vol] 28.2 mmol/L Normal 21.0-32.0 [facility] Comment on above: Performed By: #### T SH, CMP, LIPID #### [facility] [address] [address] [address] Jakub Chen Creatinine [Mass/Vol] 1.01 mg/dL Normal 0.55-1.02 [facility] Comment on above: Performed By: #### T SH, CMP, LIPID #### [facility] [address] [place] [address] Dr. Jakub Chen EGFR-AF LITHUANIAN >60 Normal >=60 [facility] Comment on above: Performed By: #### T SH, CMP, LIPID #### [facility] [address] [place] [address] Dr. Jakub Chen EGFR-NON AF LITHUANIAN 56 mL/min/1.73m2 Critically low >=60 [facility] Comment on above: Performed By: #### T SH, CMP, LIPID #### [facility] [address] [place] [address] Dr. Jakub Chen Globulin (S) [Mass/Vol] 3.5 g/dL Normal [facility] Comment on above: Performed By: #### T SH, CMP, LIPID #### [facility] [address] [address] [address] Jakub Chen Glucose [Mass/Vol] 95 mg/dL Normal 74-[address] [facility] Comment on above: Performed By: #### T SH, CMP, LIPID #### [facility] [address] [place] [address] Dr. Jakub Chen Potassium [Moles/Vol] 4.9 mmol/L Normal 3.5-5.1 [facility] Comment on above: Performed By: #### T SH, CMP, LIPID #### [facility] [address] [place] [address] Dr. Jakub Chen Protein [Mass/Vol] 7.0 g/dL Normal 6.4-8.2 [facility] Comment on above: Performed By: #### T SH, CMP, LIPID #### [facility] [address] [place] [address] Dr. Jakub Chen Sodium [Moles/Vol] 143 mmol/L Normal 136-145 [facility] Comment on above: Performed By: #### T SH, CMP, LIPID #### [facility] [address] [place] [address] Dr. Jakub Chen Urea nitrogen [Mass/Vol] 13.0 mg/dL Normal 7.0-18.0 [facility] Comment on above: Performed By: #### T SH, CMP, LIPID #### [facility] [address] [place] [address] Dr. Jakub Chen Urea nitrogen/Creatinine [Mass ratio] 12.9 mg/mg Normal [facility] Comment on above: Performed By: #### T SH, CMP, LIPID #### [facility] [address] [place] [address] Dr. Jakub Chen TSHon 07-28-2022 TSH 1.406 uIU/mL Normal 0.358-3.740 [facility] Comment on above: Performed By: #### T SH, CMP, LIPID #### [facility] [address] [place] [address] Dr. Jakub Chen COVID/FLU RT-PCRon SARS-CoV-2 (COVID-19) RNA RUSS+probe Ql (Unsp spec) Negative [facility] Other COVID/FLU RT-PCR Negative [facility] [employer] Other [employer] 03-13-2022 S. pyogenes Org specific cx Ql (Throat) Negative [facility] [employer] Other [employer] Other Vital Signs Date Time Vital Sign Value Performing Clinician Facility 12-30-2023 10:43-0400 Body height 167.64 cm [facility] 12-30-2023 10:43-0400 Body mass index (BMI) [Ratio] 40.1 kg/m2 [facility] 12-30-2023 10:43-0400 Body weight 112.66 kg [facility] 12-30-2023 10:43-0400 Diastolic blood pressure 82 mm[Hg] [facility] 12-30-2023 10:43-0400 Heart rate 51 /min [facility] 12-30-2023 10:43-0400 Respiratory rate 12 /min [facility] 12-30-2023 10:43-0400 Systolic blood pressure 147 mm[Hg] [facility] 07-11-2023 11:47-0400 Body height 167.64 cm [facility] 07-11-2023 11:47-0400 Body mass index (BMI) [Ratio] 40.2 kg/m2 [facility] 07-11-2023 11:47-0400 Body weight 113.05 kg [facility] 07-11-2023 11:47-0400 Diastolic blood pressure 111 mm[Hg] [facility] 07-11-2023 11:47-0400 Heart rate 75 /min [facility] 07-11-2023 11:47-0400 Respiratory rate 12 /min [facility] 07-11-2023 11:47-0400 Systolic blood pressure 162 mm[Hg] [facility] 08-03-2022 11:30-0400 Body height 167.64 cm Harjinder Ball Other [facility] [employer] Other 08-03-2022 11:30-0400 Body mass index (BMI) [Ratio] 38.22 kg/m2 Harjinder Ball Other [facility] [employer] Other 08-03-2022 11:30-0400 Body weight 107.41 kg Harjinder Ball Other [facility] [employer] Other 08-03-2022 11:30-0400 Diastolic blood pressure 78 mm[Hg] Harjinder Ball Other [facility] [employer] Other 08-03-2022 11:30-0400 Respiratory rate 12 /min Harjinder Ball Other [facility] [employer] Other 08-03-2022 11:30-0400 Systolic blood pressure 122 mm[Hg] Harjinder Ball Other [facility] [employer] Other 03-13-2022 12:15-0500 Body height 167.64 cm Rosemary Declan Other [facility] Other 03-13-2022 12:15-0500 Body mass index (BMI) [Ratio] 36.63 kg/m2 Rosemary Manriquez Other [facility] Other 03-13-2022 12:15-0500 Body temperature 99.3 [degF] Rosemary Manriquez Other [facility] Other 03-13-2022 12:15-0500 Body weight 102.97 kg Rosemary Manriquez Other [facility] [employer] Other 03-13-2022 12:15-0500 Diastolic blood pressure 86 mm[Hg] Rosemary Manriquez Other [facility] Other 03-13-2022 12:15-0500 Respiratory rate 20 /min Rosemary Manriquez Other [facility] Other 03-13-2022 12:15-0500 SaO2% (BldA) [Mass fraction] 97 % Rosemary Manriquez Other [facility] Other 03-13-2022 12:15-0500 Systolic blood pressure 132 mm[Hg] Rosemary Manriquez Other [employer] Other Encounters Encounter Date Encounter Type Care Provider Facility Start: 12-30-2023 End: 12-30-2023 ambulatory [facility] Work Phone: Start: 12-30-2023 End: 12-30-2023 Encounter for general adult medical examination without abnormal findings [facility] Start: 12-30-2023 End: 12-30-2023 Patient encounter procedure [facility] Work Phone: Start: 12-22-2023 Non-patient / Non-visit [facility] Work Phone: Start: 12-06-2023 Patient encounter status [facility] Start: 10-26-2023 End: 10-26-2023 ambulatory [facility] Start: 09-06-2023 ambulatory HARJINDER [facility] Start: 08-31-2023 End: 08-31-2023 ambulatory CHARLIE JOEL [facility] Start: 08-30-2023 ambulatory HARJINDER DENNY [facility] Start: 08-15-2023 End: 08-15-2023 ambulatory VISHNU COVINGTON Not Available Start: 08-02-2023 End: 08-03-2023 ambulatory [facility] Start: 07-11-2023 End: 07-11-2023 ambulatory [facility] Work Phone: Start: 07-11-2023 End: 07-11-2023 Patient encounter procedure [facility] Work Phone: Start: 12-28-2022 End: 12-28-2022 ambulatory Harjinder Denny Other [employer] Other Start: 12-28-2022 Telephone encounter Harjinder GOSS [facility] Start: 09-13-2022 End: 09-13-2022 ambulatory Harjinder Denny Other [employer] Other Start: 09-13-2022 Telephone encounter Harjinder GOSS [facility] Start: 08-25-[address] HARJINDER DENNY Facili ty:[facility] Start: 08-03-2022 End: 08-03-2022 ambulatory Harjinder Denny Other [facility] Other Start: 08-03-2022 Encounter for genera l adult medical examination without abnormal findings Harjinder Denny [facility] Start: 08-03-2022 Periodic preventive med est patient 40-64yrs Harjinder Denny [facility] Start: 08-02-2022 Encounter for genera l adult medical examination without abnormal findings DR HARJINDER DENNY [facility] Start: 07-28-2022 End: 07-29-[address] HARJINDER DENNY Facility:[facility] Start: 07-28-2022 End: 07-29-2022 Encounter for general adult medical examination without abnormal findings DR HARJINDER DENNY Facility:[facility] Start: 07-16-2022 End: 07-16-2022 ambulatory Harjinder Denny Other [facility] [employer] Other Start: 07-16-2022 Encounter for genera l adult medical examination without abnormal findings Harjinder Denny [facility] Start: 07-16-2022 Telephone encounter Harjinder GOSS [facility] Start: 06-21-2022 End: 06-21-2022 ambulatory Harjinder eDnny Other [employer] Other Start: 06-21-2022 Telephone encounter Harjinder Denny [facility] Start: 04-06-2022 Gynecological examination abnormal Harjinder Denny Other [employer] Other Start: 04-06-2022 Gynecological examination normal Harjinder Denny Other [facility] Other Start: 03-13-2022 End: 03-13-2022 ambulatory Rosemary Manriquez Other [employer] Other Start: 03-13-2022 Office outpatient ne w 20 minutes Rosemary Manriquez [facility] Start: 02-04-2020 Adult health examination Reinaldo Denny Other [employer] Other Start: 02-10-2018 End: 02-11-2018 Patient encounter procedure DEFAULT PHYSICIAN Facility:[facility] Procedures Date Procedure Procedure Detail Performing Clinician Depression screening Polina Denny Other Screening for malign ant neoplasm of breast Harjinder Denny Other Screening for malign ant neoplasm of skin Harjinder Denny Other Plan of Treatment Date Care Activity Detail Author Comprehensive metabo lic 2000 panel - Serum or Plasma [facility] Immunizations Immunization Date Immunization Notes Care Provider [facility] [place] 01-30-2021 COVID-19 Vaccine Mod ijeoma - Documentation Purposes Only Harjinder Denny Other [facility] 05-15-2020 COVID-19 Vaccine Mod ijeoma - Documentation Purposes Only Harjinder Denny Other [facility] 04-17-2020 COVID-19 Vaccine Mod ijeoma - Documentation Purposes Only Harjinder Denny Other [facility] Payers Date Payer Category Payer [employer] Blue [employer] [id number] 1965 Unknown [id number] 1965 Unknown [id number] 1965 Unknown [id number] 1965 Unknown [id number] 1964 Unknown [id number] 1964 Unknown [id number] 1965 Unknown [id number] Unknown Unknown [id number] 2. [id number] Unknown MMO-DO NOT USE [id number] Social History Date Type Detail Facility Unknown if ever smoked [employer] Other Sex Assigned At Sex Assigned At Bir th [employer] Other Start: 1965 Sex Assigned At Female F [facility] Clinical Notes 03-13-2022 to 10-26-2023 Note Date & Type Note Facility 10-26-2023 Note Cardiovascular Medic [facility] SUBJECTIVE Chief Complaint Patient presents with Follow-up 3 month Follow up - go over echo results Josephine Salas is a 58 y.o. female here for follow-up. 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 [...] thyroid. LDL 135 (more content not included)... [facility] 08-02-2023 Note Cardiovascular Medic [facility] SUBJECTIVE Chief Complaint Patient presents with Hypertension Josephine Salas is a 58 y.o. female here for follow-up. 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 [...] She is sym (more content not included)... [facility] 08-02-2023 Note Patient here c/o hyp ertension. [...] All other systems reviewed and are negative. [facility] 09-13-2022 Evaluation note Encounter Date Diagnosis Assessment Notes Sep, Mild episode of recurrent major depressive disorder (ICD-10 - F33.0) [facility] [employer] Other 04-25-2023 Evaluation note* Encounter Date Diagnosis [...] use, the patient reduces the risk for KS, CVA, HTN, cardiac dysrhythmias and sudden cardiac [...] mammogram for breast cancer (ICD-10 - Z12.31) [facility] [employer] Other 04-07-2023 Evaluation note* Encounter Date Diagnosis Assessment Notes Treatment Notes Treatment Clinical Notes Jul, Wellness examination (ICD-10 - Z00.00) [facility] [employer] Other 12-03-2022 Evaluation note* Encounter Date Diagnosis [...] care provider if no improvement of symptoms. [employer] Other Evaluation noteNo [employer] Other Evaluation note* Diagnosis Onset Date Resolution Status Epigastric abdominal pain ac laila Hypertension acute S/P cholecystectomy noneacti ve [facility] Work Phone: Evaluation note* Diagnosis Onset Date Resolution Status Hypertension acute Major depression acute Obesity acute PVC (premature ventricular contraction) acute Wellness examination acute [facility] Work Phone: Hisfgvv general Narrative - Reported* Type Description Date Medical History HYPERTENSION Medical History DEPRESSION Surgical History GALL BLADDER Surgical History APPENDIX Surgical History LAZY EYE SURGERY Surgical History TONSILS Hospitalization History SEE ABOVE [employer] Other His[facility] general Narrative - Reported* Type Description Date Medical History HYPERTENSION Medical History DEPRESSION Medical History Mild episode of recurrent major depressive disorder Medical History Primary hypertension Medical History Ventricular bigeminy Medical History Obstructive sleep apnea Surgical History GALL BLADDER Surgical History APPENDIX Surgical History LAZY EYE SURGERY Surgical History TONSILS Surgical History RIGHT FOOT SURGERY Surgical History COLONOSCOPY Hospitalization History SEE ABOVE [employer] Other Summary Purpose Family History Relationship Condition Age at Onset Recorded Date/T david Not Specified Unknown Diabetes mellitus Unknown Relationship Condition Age at Onset Recorded Date/T david mother Unknown Diabetes mellitus Unknown Advance Directives Advance Directive Response Recorded Date/ Time Advance Directives No July 10 24 11:11am Chief Complaint and Reason for Visit Chief Complaint abdominal pain Reason for Visit Epigastric abdominal pain Hypertension S/P cholecystectomy Chief Complaint wellness Reason for Visit Hypertension Major depression Obesity PVC (premature ventricular contraction) Wellness examination Additional Source Comments INFORMATION SOURCE (unrecogn ized section and content) DATE CREATED AUTHOR 03/19/2018 [facility] DATE CREATED AUTHOR AUTHOR'S ORGANIZ ATION 08/25/2022 [facility] DATE CREATED AUTHOR AUTHOR'S ORGANIZ ATION 08/16/2023 [facility] EPIC DATE CREATED AUTHOR AUTHOR'S ORGANIZ ATION 09/06/2023 [facility] DATE CREATED AUTHOR AUTHOR'S ORGANIZ ATION 10/30/2023 [facility] REASON FOR VISIT (unrecogniz ed section and content) PINK EYE SORE THROATprescrip tion refillLab Work RequestedwellnessrefillRefill Care Teams (unrecognized sec tion and content) Team Status: Active Member Role Status Dates PHYSICIAN NO FAMILY Primary Care Provider Active Team Status: Active Member Role Status Dates PHYSICIAN NO FAMILY Primary Care Provider Active Start: December 22, 2023 Harjinder Denny , Attending Provider Active Sta rt: December 22, 2023 Team Status: Inactive Member Role Status Dates PHYSICIAN NO FAMILY Primary Care Provider Active Start: December 30, 2023 End: December 30, 2023 Harjinder Denny , Attending Provider Active Sta rt: December 30, 2023 End: December 30, 2023 Team Status: Active Member Role Status Dates PHYSICIAN NO FAMILY Primary Care Provider Active Team Status: Inactive Member Role Status Dates PHYSICIAN NO FAMILY Primary Care Provider Active Start: July 11, 2023 End: July 11, 2023 Harjinder Denny , Attending Provider Active Sta rt: July 11, 2023 End: July 11, 2023 Team Status: Active Member Role Status Dates PHYSICIAN NO FAMILY Primary Care Provider Active Start: December 22, 2023 Harjinder Denny , Attending Provider Active Sta rt: December 22, 2023 Team Status: Inactive Member Role Status Dates PHYSICIAN NO FAMILY Primary Care Provider Active Start: December 30, 2023 End: December 30, 2023 Harjinder Denny , DO Attending Provider Active Sta rt: December 30, 2023 End: December 30, 2023 Goals (unrecognized section and content) Goals [...] BE BASED ON THE PRIMARY CLINICAL RECORDS. [facility] [employer] [facility] provides no warranty or guarantee of the accuracy or completeness of information in this document.
[2024-01-13] MEDS: REGADENOSON 0.4 MG/5 ML SYRINGE IV (09:26)
--- NOTE | 2024-01-13 09:33 | PC.NURSE ---
Nursing Note Cardiac Stress Test Reviewed: Medication, allergies and patient history reviewed. Stress Test: [ x] Patient tolerated stress test well. [ ] Patient unable to tolerate walking on treadmill. Switched to Lexiscan stress test. [ x] No chest pain noted per patient [ ] Chest pain that resolved prior to leaving stress lab. [x ] No dyspnea noted. [ ] Dyspnea that resolved prior to leaving stress lab. [ x] Patient left stress lab asymptomatic and hemodynamically stable. [ ] Patient taken to the Emergency Room due to non-resolving symptoms following stress test. [ ] Patient achieved target heart rate. [ ] Patient unable to achieve target heart rate. [ ] Aminophylline administered as reversal agent to Lexiscan (Regadenoson). [ ] Nitro administered. Nursing Comments:
== END 2024-01-13 06:53 | disposition home or self-care (01) ==
LOC: NM 06:53
PROVIDERS: PCP Internal Medicine; Visit Provider Nurse Practitioner Family
DX: R06.09 Other forms of dyspnea (principal)
CPT/HCPCS: 78452; 93017; A9500; J2785